=== PATIENT | male | born 1965 | race Caucasian/White ===

== ENCOUNTER 2017-04-15 17:22 | Inpatient (IN) | payer BC ==
[2017-04-15 17:23] VITALS: BMI 25.0
[2017-04-15] MEDS ORDERED: Sodium Chloride 0.9% 1,000 ML IV STA (17:54)
[2017-04-15 18:06] LABS: VENOUS BLOOD GAS BASE EXCESS 0.2 mmol/L (0.0-2.0); VENOUS BLOOD GAS PCO2 24 mmHg (40-60); VENOUS BLOOD PH 7.55 (7.32-7.43)
[2017-04-15 18:13] LABS: EOS % 0.1 % (0.0-4.0); HEMATOCRIT 46.9 % (35.0-51.0); LYMPH # 1.3 K/uL (1.0-4.3); LYMPH % 33.8 % (20.0-40.0); MEAN CELL VOLUME 95.1 fl (80.0-94.0); MEAN CORPUSCULAR HEMOGLOBIN 32.2 pg (27.0-31.0); MEAN CORPUSCULAR HGB CONC 33.8 g/dL (33.0-37.0); MEAN PLATELET VOLUME 9.5 fl (7.2-11.7); MONO % 26.8 % (0.0-10.0); NEUT # 1.5 K/uL (1.8-7.0); NEUT % 38.3 % (50.0-75.0); NRBC % 0.3 % (0.0-0.0); PLATELET COUNT 109 K/uL (130-400); RED CELL DISTRIBUTION WIDTH 12.6 % (11.5-14.5); WHITE BLOOD COUNT 3.9 K/uL (4.8-10.8)
[2017-04-15 18:20] LABS: ALB/GLOB RATIO 1.4 (1.0-2.1); ALKALINE PHOSPHATASE 68 U/L (38-126); ALT/SGPT 101 U/L (21-72); AST/SGOT 62 U/L (17-59); BILIRUBIN,TOTAL 0.6 mg/dl (0.2-1.3); BLOOD UREA NITROGEN 12 mg/dl (9-20); CHLORIDE 101 mmol/L (98-107); GFR AFRICAN-AMERICAN > 60; GLUCOSE,RANDOM 172 mg/dL (75-110); SODIUM 133 mmol/l (132-148)
[2017-04-15 18:34] LABS: POTASSIUM 4.2 MMOL/L (3.6-5.0)
[2017-04-15 18:36] LABS: PARTIAL THROMBOPLASTIN TIME 26.2 Seconds (25.6-37.1)
--- NOTE | 2017-04-15 18:49 | CT ---
PROCEDURE: CT HEAD WITHOUT CONTRAST. HISTORY: OAKLEY with neck pain COMPARISON: 03/01/2013 TECHNIQUE: Axial computed tomography images were obtained through the head/brain without intravenous contrast. Coronal and sagittal reconstructed images. Radiation dose: Total exam DLP = 840.68 mGy-cm. This CT exam was performed using one or more of the following dose reduction techniques: Automated exposure control, adjustment of the mA and/or kV according to patient size, and/or use of iterative reconstruction technique. FINDINGS: HEMORRHAGE: No intracranial hemorrhage. BRAIN: No mass effect or edema. Small lacune or infarcts left thalamus similar finding identified previously. VENTRICLES: Unremarkable. No hydrocephalus. CALVARIUM: Unremarkable. PARANASAL SINUSES: Unremarkable as visualized. No significant inflammatory changes. MASTOID AIR CELLS: Unremarkable as visualized. No inflammatory changes. OTHER FINDINGS: None. IMPRESSION: No acute intracranial abnormalities. No significant findings to account for the clinical presentation. No significant interval change compared to the prior examination(s).
[2017-04-15 18:57] LABS: CARBON DIOXIDE 17 mmol/L (22-30)
[2017-04-15 19:24] LABS: NEUTROPHIL 38 % (42-75); TOTAL CELLS COUNTED 100
[2017-04-15 19:25] LABS: GIANT PLATELETS PRESENT
--- NOTE | 2017-04-15 19:27 | ED PDOC ---
HPI: General Adult Time Seen by Provider: 04/15/17 17:46 Chief Complaint (Nursing): Flu-like Symptoms Chief Complaint (Provider): fever History Per: Patient History/Exam Limitations: no limitations Additional Complaint(s): 52yo M in ED for eval of neck pain, nausea with one episode of vomiting with fever chills, abd pain,body aches cough(mild) no sputum started today with photophobia. pt states that he was seen by pmd yesterday for lesion to inner thigh (right) and rx Keflex, which he flees has not done anything for him. Pt denies foreign travel or contact with sick persons. Past Medical History Reviewed: Historical Data, Nursing Documentation, Vital Signs Vital Signs: Last Vital Signs Temp 103.2 F H 04/15/17 17:37 Pulse 118 H 04/15/17 17:37 Resp 24 04/15/17 17:37 BP 137/88 04/15/17 17:37 Pulse Ox 99 04/15/17 17:37 - Medical History PMH: Diabetes, Emphysema, HTN Denies: Chronic Kidney Disease - Surgical History Surgical History: Appendectomy, Endoscopy - Family History Family History: States: No Known Family Hx - Home Medications Home Medications: Ambulatory Orders Medication Instructions Recorded Enalapril [Vasotec] 10 mg PO DAILY 11/02/13 Canagliflozin [Invokana] 100 mg PO QPM 02/08/15 Cyanocobalamin [Vitamin B12] 1 tab PO DAILY 03/24/16 Ibuprofen [Motrin Tab] 600 mg PO Q6H PRN 03/24/16 Sucralfate [Carafate Tab] 1 gm PO BID 03/24/16 Valacyclovir HCl [Valtrex] 1,000 mg PO DAILY 03/24/16 Vitamin A 1 cap PO DAILY 03/24/16 Vitamin E 1,000 unit PO DAILY 03/24/16 Tigecycline [Tygacil] 50 mg IV Q12 #0 vial 04/06/16 - Allergies Allergies/Adverse Reactions: Allergies Allergy/AdvReac Type Severity Reaction Status Date / Time cephalexin Allergy ITCHING Verified 03/24/16 13:37 Cephalosporins Allergy ITCHING Verified 03/24/16 13:37 Sulfa (Sulfonamide Allergy ITCHING Verified 03/24/16 13:37 Antibiotics) sulfamethoxazole Allergy ITCHING Verified 03/24/16 13:37 [From Bactrim] trimethoprim [From Bactrim] Allergy ITCHING Verified 03/24/16 13:37 Review of Systems ROS Statement: Except As Marked, All Systems Reviewed And Found Negative Constitutional: Positive for: Fever, Chills, Weakness, Malaise Respiratory: Positive for: Cough Gastrointestinal: Positive for: Nausea, Vomiting, Abdominal Pain Musculoskeletal: Positive for: Neck Pain Neurological: Positive for: Headache Physical Exam - Reviewed Nursing Documentation Reviewed: Yes Vital Signs Reviewed: Yes - Physical Exam Appears: Positive for: Non-toxic, Uncomfortable, In Acute Distress Head Exam: Positive for: ATRAUMATIC, NORMAL INSPECTION, NORMOCEPHALIC Skin: Positive for: Normal Color, Warm, DRY Eye Exam: Positive for: EOMI, Normal appearance, PERRL ENT: Positive for: Normal ENT Inspection Neck: Positive for: Normal. Negative for: Painless ROM (painful C-spine. (-) brudzinski sign ) Cardiovascular/Chest: Positive for: Regular Rate, Rhythm Respiratory: Positive for: CNT, Normal Breath Sounds Gastrointestinal/Abdominal: Positive for: Normal Exam, Bowel Sounds, Soft Back: Positive for: Normal Inspection Extremity: Positive for: Normal ROM Neurologic/Psych: Positive for: Alert, Oriented - Laboratory Results Result Diagrams: 04/15/17 18:04 04/15/17 18:04 - ECG O2 Sat by Pulse Oximetry: 99 - Radiology X-Ray: Interpreted by Il X-Ray Interpretation: No Acute Disease - CT Scan/US head Other Rad Studies (CT/US): Radiology Report Reviewed (NAD) - Progress ED Course And Treament: case discussed with MD radha for pt after torodol 30mg IV and morphine 2mg IV still with OAKLEY 9/10 and neck pain. Lumbar puncture would be beneficial to help r/ o meningitis however pt refused. Pt explained the benefits and the risks he assumes and still declines LP. PT meets SIRS/Sepsis criteria-tachycardia, low WBC, fever in ER. Re-evaluation Time: 19:31 Condition: Re-examined (still with perisistent OAKLEY) Medical Decision Making Medical Decision Making: Pt case discussed with MD Hiro -PMD suggest vancomycin /Rocephin and admission to for Sepsis Disposition - Clinical Impression Clinical Impression: Sepsis, Headache - Patient ED Disposition Is Patient to be Admitted: Yes - Disposition Disposition Time: 19:32 Condition: FAIR Forms: [facility] (Maltese) - Pt Status Changed To: Hospital Disposition Of: Inpatient - Admit Certification Admit to Inpatient:: After my assessment, the patient will require hospitalization for at least two midnights. This is because of the severity of symptoms shown, intensity of services needed, and/or the medical risk in this patient being treated as an outpatient. - POA Present On Arrival: None
[2017-04-15] MEDS ORDERED: Vancomycin 1 g Inj ONE (21:30)
[2017-04-15] MEDS ORDERED: Sodium Chloride 0.45% 1,000 ML IV SCH (23:00)
[2017-04-16 05:35] LABS: BASO % 0.9 % (0.0-2.0); HEMATOCRIT 42.8 % (35.0-51.0); LYMPH # 1.1 K/uL (1.0-4.3); LYMPH % 33.1 % (20.0-40.0); MEAN CELL VOLUME 95.5 fl (80.0-94.0); MEAN CORPUSCULAR HGB CONC 33.6 g/dL (33.0-37.0); MEAN PLATELET VOLUME 9.7 fl (7.2-11.7); MONO # 1.1 K/uL (0.0-0.8); MONO % 33.5 % (0.0-10.0); NEUT # 1.1 K/uL (1.8-7.0); NEUT % 32.5 % (50.0-75.0); NRBC % 0.7 % (0.0-0.0); PLATELET COUNT 90 K/uL (130-400); RED CELL DISTRIBUTION WIDTH 12.5 % (11.5-14.5); WHITE BLOOD COUNT 3.3 K/uL (4.8-10.8)
[2017-04-16 05:47] LABS: BLOOD UREA NITROGEN 12 mg/dl (9-20); CALCIUM 8.2 mg/dL (8.4-10.2); CARBON DIOXIDE 22 mmol/L (22-30); CHLORIDE 104 mmol/L (98-107); GFR AFRICAN-AMERICAN > 60; GLUCOSE,RANDOM 161 mg/dL (75-110); POTASSIUM 3.7 MMOL/L (3.6-5.0); SODIUM 137 mmol/l (132-148)
[2017-04-16 06:44] LABS: RBC URINE 1 /hpf (0-3); URINE BILIRUBIN NEGATIVE (NEGATIVE); URINE BLOOD NEGATIVE (NEGATIVE); URINE COLOR YELLOW (YELLOW); URINE GLUCOSE (UA) >=500 mg/dL (Normal); URINE KETONE 20 mg/dL (NEGATIVE); URINE LEUKOCYTE ESTERASE NEG Leu/uL (Negative); URINE PROTEIN 30 mg/dL (NEGATIVE); URINE UROBILINOGEN 0.2-1.0 mg/dL (0.2-1.0); WBC URINE < 1 /hpf (0-5)
[2017-04-16] MEDS: levoFLOXacin 500 mg in D5W 500 MG/100 ML BAG IVPB SCH (08:11)
[2017-04-16] MEDS: Pantoprazole 40 mg EC Tab PO SCH (08:19)
--- NOTE | 2017-04-16 08:38 | CARD ---
APPROVED REPORT EKG Measurement Heart [id number] [id number] <Conclusion> Sinus tachycardia Otherwise normal ECG
[2017-04-16 10:35] LABS: NEUTROPHIL 30 % (42-75); REACTIVE LYMPHOCYTES 4 % (0-0); TOTAL CELLS COUNTED 100
[2017-04-16 12:40] LABS: ERYTHROCYTE SEDIMENTATION RATE 16 mm/hr (0-20)
--- NOTE | 2017-04-16 12:55 | RAD ---
HISTORY: cough COMPARISON: No prior. FINDINGS: LUNGS: No active pulmonary disease. PLEURA: No significant pleural effusion identified, no pneumothorax apparent. CARDIOVASCULAR: Normal. OSSEOUS STRUCTURES: No significant abnormalities. VISUALIZED UPPER ABDOMEN: Normal. OTHER FINDINGS: None. IMPRESSION: No active disease.
[2017-04-16] MEDS: Aztreonam 1 GM in Sodium Chloride 0.9% 100 ML IVPB SCH ×2 (14:59→20:24)
[2017-04-16] MEDS: Apap-Butalbital-Caffeine 325-50-40mg Tab PO PRN (15:00)
--- NOTE | 2017-04-16 20:06 | HP ---
HISTORY OF PRESENT ILLNESS: The patient is a 52-year-old male who was admitted via the emergency room following an episode of neck pain, nausea, with one episode of vomiting, fever and chills, some body aches. On the day of admission he was sitting in the emergency room and indicated that he had a fever and was advised to have a lumbar puncture performed but he refused. He was seen in the office with right inner thigh lesion that appeared to be an insect bite. Twenty four hours prior to this presentation, he was placed on Keflex but indicates that the area of the bite remains the same and symptoms of nausea, vomiting and headache have occurred and therefore he was admitted for workup and therapy. 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. He also indicated he had a lumbar puncture done at [facility] about 6 months ago and as such had refused to have a lumbar puncture done again. FAMILY HISTORY: Remarkable for mother who had diabetes, hypertension and aunt who had Alzheimer's disease. SOCIAL HISTORY: He is an ex-smoker, does not use drugs, does not use alcohol. Has . REVIEW OF SYSTEMS: Essentially remarkable for occasional shortness of breath. PHYSICAL EXAMINATION: GENERAL: The patient is alert and oriented, still appears to be in some distress because of excessive diaphoresis. VITAL SIGNS: Temperature maximum was 103 degrees Fahrenheit prior to our admit to the hospital, but has been down to 99.3 degrees Fahrenheit since in hospital. Blood pressure 128/90, pulse of 114, respiratory rate 18 per minute. He is afebrile to 99 degrees Fahrenheit. O2 saturation 97% on nasal cannula. SKIN: Shows fair turgor. HEENT: Pupils are equal and reactive to light and accommodation. Mouth shows fair hygiene. JVP flat. There is a swelling of the parotid gland area bilaterally and submandibular glands. LUNGS: Clear. HEART: Regular. No murmur, rub or gallops. ABDOMEN: Soft, nontender. No organomegaly. EXTREMITIES: Shows no edema or cyanosis. CENTRAL NERVOUS SYSTEM: Grossly intact. RECTAL AND GENITAL: Deferred. LABORATORY DATA: Remarkable for WBC of 3.3, hemoglobin 14.4, platelet count of 90,000 down from 109,000, bands 6, neutrophils 32, lymphocytes 33, monocytes 33. Sedimentation rate is pending. PT 12.2, INR 1.2. VBG: PH 7.55, pCO2 of 24, pO2 of 47, bicarbonate 24.8, saturation 90.5, this is on room air. All cultures so far pending. Chest x-ray official report pending, but shows no acute cardiopulmonary pathology as reviewed by me. CAT scan of the head, no acute intracranial abnormalities noted. EKG sinus tachycardia. IMPRESSION: 1. Sepsis, questionable etiology. 2. Headaches probably secondary to sepsis. One has to rule out meningitis for the patient who is refusing lumbar puncture. 3. 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 4. Mild thrombocytopenia probably secondary to sepsis. 5. Diabetes mellitus. 6. Hypertension. PLAN: Intravenous antibiotics, intravenous fluids. Analgesics for pain. Infectious Disease evaluation. Case already discussed with Dr. Marshall who will see the patient on consult. The patient again advised to lumbar puncture but refused. We will maintain the patient in isolation while workup is being completed. We will obtain blood work for Lyme titers in view of the fact that the patient has what appears to be an insect bite on the right thigh even though this looks like a localized bite with no evidence of cellulitis. Further therapy will depend on findings. Chava Bosch MD
[2017-04-17] MEDS: Aztreonam 1 GM in Sodium Chloride 0.9% 100 ML IVPB SCH ×3 (03:27→20:17)
[2017-04-17 07:14] LABS: BASO % 0.5 % (0.0-2.0); HEMATOCRIT 42.3 % (35.0-51.0); LYMPH # 1.8 K/uL (1.0-4.3); LYMPH % 36.8 % (20.0-40.0); MEAN CELL VOLUME 94.1 fl (80.0-94.0); MEAN CORPUSCULAR HEMOGLOBIN 32.4 pg (27.0-31.0); MEAN CORPUSCULAR HGB CONC 34.4 g/dL (33.0-37.0); MEAN PLATELET VOLUME 9.7 fl (7.2-11.7); MONO # 1.5 K/uL (0.0-0.8); NEUT # 1.5 K/uL (1.8-7.0); NEUT % 31.7 % (50.0-75.0); NRBC % 0.3 % (0.0-0.0); PLATELET COUNT 76 K/uL (130-400); RED CELL DISTRIBUTION WIDTH 12.5 % (11.5-14.5); WHITE BLOOD COUNT 4.8 K/uL (4.8-10.8)
[2017-04-17 07:25] LABS: BLOOD UREA NITROGEN 8 mg/dl (9-20); CARBON DIOXIDE 22 mmol/L (22-30); CHLORIDE 99 mmol/L (98-107); GFR AFRICAN-AMERICAN > 60; GLUCOSE,RANDOM 177 mg/dL (75-110); POTASSIUM 3.5 MMOL/L (3.6-5.0); SODIUM 132 mmol/l (132-148)
[2017-04-17] MEDS: Pantoprazole 40 mg EC Tab PO SCH (09:31)
[2017-04-17] MEDS: Apap-Butalbital-Caffeine 325-50-40mg Tab PO PRN (09:31)
[2017-04-17] MEDS: levoFLOXacin 500 mg in D5W 500 MG/100 ML BAG IVPB SCH (11:00)
[2017-04-17] MEDS ORDERED: Iohexol 240 (50 ml) PO ONE (11:07)
--- NOTE | 2017-04-17 11:17 | CP.PCM.PN ---
Subjective - Date & Time of Evaluation Date of Evaluation: 04/17/17 Time of Evaluation: 11:18 - Subjective Subjective: FEELS BETTER TODAY STILL HAS LOW GRADE FEVER AND DIAPHORESES NO COUGH/CHEST PAINS R THIGH RASH UNCHANGED Objective - Vital Signs/Intake and Output Vital Signs (last 24 hours): Temp Pulse Resp BP Pulse Ox 99.5 F 93 H 20 130/85 98 04/17/17 07:31 04/17/17 07:31 04/17/17 07:31 04/17/17 07:31 04/17/17 07:31 - Medications Medications: Current Medications Acetaminophen (Tylenol 325mg Tab) 650 mg PO Q4 PRN PRN Reason: Pain, Mild (1-3) Last Admin: 04/16/17 10:44 Dose: 650 mg Acetaminophen (Tylenol 325mg Tab) 650 mg PO Q4 PRN PRN Reason: Fever >100 F Last Admin: 04/17/17 04:49 Dose: 650 mg Acetaminophen/Butalbital/Caffeine (Fioricet) 2 tab PO Q4 PRN PRN Reason: Headache Last Admin: 04/17/17 09:31 Dose: 2 tab Clotrimazole (Lotrimin 1% Cream) 1 applic TOP BID [facility] Last Admin: 04/17/17 10:00 Dose: 1 applic Enalapril Maleate (Vasotec) 10 mg PO DAILY [facility] Last Admin: 04/17/17 09:31 Dose: 10 mg Vancomycin HCl 1 gm/ Sodium (Chloride) 250 mls @ 166.667 mls/hr IVPB Q12 [facility] Last Admin: 04/17/17 09:30 Dose: 166.667 mls/hr Levofloxacin/Dextrose (Levaquin 500mg) 500 mg in 100 mls @ 100 mls/hr IVPB DAILY [facility] Last Admin: 04/17/17 11:00 Dose: 100 mls/hr Aztreonam 1 gm/ Sodium (Chloride) 100 mls @ 100 mls/hr IVPB Q8H [facility] Last Admin: 04/17/17 03:27 Dose: 100 mls/hr Iohexol (Omnipaque 240 (50 Ml)) 50 ml PO ONCE ONE Stop: 04/17/17 11:08 Morphine Sulfate (Morphine) 2 mg IVP Q4 PRN PRN Reason: Pain, severe (8-10) Last Admin: 04/17/17 09:30 Dose: 2 mg Pantoprazole Sodium (Protonix Ec Tab) 40 mg PO DAILY [facility] Last Admin: 04/17/17 09:31 Dose: 40 mg - Labs Labs: 04/17/17 06:00 04/17/17 07:00 PT 12.2 Seconds (9.8-13.1) 04/15/17 18:04 INR 1.2 (0.9-1.2) 04/15/17 18:04 APTT 26.2 Seconds (25.6-37.1) 04/15/17 18:04 - Constitutional Appears: No Acute Distress - Head Exam Head Exam: ATRAUMATIC, NORMAL INSPECTION, NORMOCEPHALIC - Eye Exam Eye Exam: EOMI, Normal appearance, PERRL Pupil Exam: NORMAL ACCOMODATION, PERRL - ENT Exam ENT Exam: Mucous Membranes Moist, Normal Exam - Neck Exam Neck Exam: Full ROM, Normal Inspection. absent: Lymphadenopathy - Respiratory Exam Respiratory Exam: Clear to Ausculation Bilateral, NORMAL BREATHING PATTERN - Cardiovascular Exam Cardiovascular Exam: REGULAR RHYTHM, +S1, +S2. absent: Murmur - GI/Abdominal Exam GI & Abdominal Exam: Soft, Normal Bowel Sounds. absent: Tenderness - Rectal Exam Rectal Exam: NORMAL INSPECTION - Extremities Exam Extremities Exam: Full ROM, Normal Capillary Refill, Normal Inspection. absent : Joint Swelling, Pedal Edema - Back Exam Back Exam: NORMAL INSPECTION - Neurological Exam Neurological Exam: Alert, Awake, CN II-XII Intact, Normal Gait, Oriented x3 - Psychiatric Exam Psychiatric exam: Normal Affect, Normal Mood - Skin Skin Exam: Dry, Intact, Normal Color, Warm Assessment and Plan - Assessment and Plan (Free Text) Assessment: SEPSIS-?ETIOLOGY THROMBOCYTOPENIA DUE TO INFECTION RASH OF R THIGH-?INSECT BITE DM WITH HYPERGLYCEMIA COPD-STABLE HEADACHES Plan: CONTINUE ANTIBIOTIC RX PT STILL REFUSES LP WILL OBTAIN CT SCAN OF CHEST AND ABD TO R/O ABSCESS
[2017-04-17 11:24] LABS: METAMYELOCYTE 1 % (0-0); NEUTROPHIL 28 % (42-75); REACTIVE LYMPHOCYTES 2 % (0-0); TOTAL CELLS COUNTED 100
--- NOTE | 2017-04-17 13:20 | CP.PCM.CON ---
History of Present Illness - History of Present Illness History of Present Illness: 52 yo male with hx of DM is admitted after failure of PO antibiotics presented with hx of several days fever, body aches, muscle aches and rash to right inner thigh in er found to have SIRS and was cultured up, started on antibiotics Found to have thrombocytopenia ID consulted for this PMH- + DM HTN ESBL E Coli infection in the past from abscess drained in 2016 allergy- cephalosporins, sulfa FH- DM SH- perirectal abscess drained in past Review of Systems - Constitutional Constitutional: As Per HPI, Anorexia, Fatigue, Fever, Headache, Lethargy, Malaise - EENT Eyes: absent: As Per HPI, Blind Spots, Blurred Vision, Change in Vision, Decreased Night Vision, Diplopia, Discharge, Dry Eye, Exophthalmos, Floaters, Irritation, Itchy Eyes, Loss of Peripheral Vision, Pain, Photophobia, Requires Corrective Lenses, Sees Flashes, Spots in Vision, Tunnel Vision, Other Visual Disturbances, Loss of Vision, Other Ears: absent: As Per HPI, Decreased Hearing, Ear Discharge, Ear Pain, Tinnitus, Abnormal Hearing, Disequilibrium, Dizziness, Other Nose/Mouth/Throat: absent: As Per HPI, Epistaxis, Nasal Congestion, Nasal Discharge, Nasal Obstruction, Nasal Trauma, Nose Pain, Post Nasal Drip, Sinus Pain, Sinus Pressure, Bleeding Gums, Change in Voice, Dental Pain, Dry Mouth, Dysphagia, Halitosis, Hoarsness, Lip Swelling, Mouth Lesions, Mouth Pain, Odynophagia, Sore Throat, Throat Swelling, Tongue Swelling, Facial Pain, Neck Pain, Neck Mass, Other - Cardiovascular Cardiovascular: absent: As Per HPI, Acrocyanosis, Chest Pain, Chest Pain at Rest , Chest Pain with Activity, Claudication, Diaphoresis, Dyspnea, Dyspnea on Exertion, Edema, Irregular Heart Rhythm, Pain Radiating to Arm/Neck/Jaw, Leg Edema, Leg Ulcers, Lightheadedness, Orthopnea, Palpitations, Paroxysmal Nocturnal Dyspnea, Pedal Edema, Radiating Pain, Rapid Heart Rate, Slow Heart Rate, Syncope, Other - Respiratory Respiratory: absent: As Per HPI, Cough, Dyspnea, Hemoptysis, Dyspnea on Exertion , Wheezing, Snoring, Stridor, Pain on Inspiration, Chest Congestion, Excessive Mucous Production, Change in Mucous Color, Pain with Coughing, Other - Gastrointestinal Gastrointestinal: absent: As Per HPI, Abdominal Pain, Belching, Bloating, Change in Bowel Habits, Change in Stool Character, Coffee Ground Emesis, Constipation, Cramping, Diarrhea, Dyspepsia, Dysphagia, Early Satiety, Excessive Flatus, Fecal Incontinence, Heartburn, Hematemesis, Hematochezia, Loose Stools, Melena, Nausea, Odynophagia, Temesmus, Vomiting, Other - Genitourinary Genitourinary: absent: As Per HPI, Change in Urinary Stream, Difficulty Urinating, Dysuria, Flank Pain, Hematuria, Pyuria, Nocturia, Urinary Incontinence, Urinary Frequency, Urinary Hesitance, Urinary Urgency, Voiding Freq/Small Amts, Freq UTI, Hx Renal/Bladder Calculi, Hx /Renal Surgery, Bladder Distension, Other - Musculoskeletal Musculoskeletal: As Per HPI, Muscle Cramps, Myalgias, Neck Pain - Integumentary Integumentary: As Per HPI, Skin Pain, Wounds - Neurological Neurological: As Per HPI - Psychiatric Psychiatric: absent: As Per HPI, Abnormal Sleep Pattern, Anhedonia, Anxiety, Auditory Hallucinations, Behavioral Changes, Change in Appetite, Change in Libido, Confusion, Depression, Difficulty Concentrating, Hallucinations, Homicidal Ideation, Hopelessness, Irritability, Memory Loss, Mood Swings, Panic Attacks, Paranoia, Suicidal Ideation, Visual Hallucinations, Tactile Hallucinations, Other - Endocrine Endocrine: absent: As Per HPI, Change in Body Appearance, Change in Libido, Cold Intolorance, Deepening of Voice, Excessive Sweating, Fatigue, Flushing, Heat Intolorance, Increase in Ring/Shoe/Hat Size, Palpitations, Polydipsia, Polyphagia, Polyuria, Other - Hematologic/Lymphatic Hematologic: absent: As Per HPI, Easy Bleeding, Easy Bruising, Lymphadenopathy, Other Past Patient History - Past Medical History & Family History Past Medical History?: Yes - Past Social History Smoking Status: Former Smoker - CARDIAC Hx Cardiac Disorders: Yes (HTN) - PULMONARY Hx Respiratory Disorders: Yes Hx Chronic Obstructive Pulmonary Disease (COPD): Yes Hx Emphysema: Yes - NEUROLOGICAL Hx Neurological Disorder: No - HEENT Hx HEENT Problems: No - RENAL Hx Chronic Kidney Disease: No - ENDOCRINE/METABOLIC Hx Endocrine Disorders: Yes (DM II) - HEMATOLOGICAL/ONCOLOGICAL Hx Blood Disorders: No - INTEGUMENTARY Hx Dermatological Problems: No - MUSCULOSKELETAL/RHEUMATOLOGICAL Hx Musculoskeletal Disorders: No Hx Falls: No - GASTROINTESTINAL Hx Gastrointestinal Disorders: Yes Hx Gastroesophageal Reflux: Yes Hx Hemorrhoids: Yes - GENITOURINARY/GYNECOLOGICAL Hx Genitourinary Disorders: No - PSYCHIATRIC Hx Psychophysiologic Disorder: No Hx Substance Use: No - SURGICAL HISTORY Hx Appendectomy: Yes - ANESTHESIA Hx Anesthesia: Yes Hx Anesthesia Reactions: No Hx Malignant Hyperthermia: No Meds Allergies/Adverse Reactions: Allergies Allergy/AdvReac Type Severity Reaction Status Date / Time cephalexin Allergy ITCHING Verified 03/24/16 13:37 Cephalosporins Allergy ITCHING Verified 03/24/16 13:37 Sulfa (Sulfonamide Allergy ITCHING Verified 03/24/16 13:37 Antibiotics) sulfamethoxazole Allergy ITCHING Verified 03/24/16 13:37 [From Bactrim] trimethoprim [From Bactrim] Allergy ITCHING Verified 03/24/16 13:37 - Medications Medications: Current Medications Acetaminophen (Tylenol 325mg Tab) 650 mg PO Q4 PRN PRN Reason: Pain, Mild (1-3) Last Admin: 04/16/17 10:44 Dose: 650 mg Acetaminophen (Tylenol 325mg Tab) 650 mg PO Q4 PRN PRN Reason: Fever >100 F Last Admin: 04/17/17 04:49 Dose: 650 mg Acetaminophen/Butalbital/Caffeine (Fioricet) 2 tab PO Q4 PRN PRN Reason: Headache Last Admin: 04/17/17 09:31 Dose: 2 tab Clotrimazole (Lotrimin 1% Cream) 1 applic TOP BID [facility] Last Admin: 04/17/17 10:00 Dose: 1 applic Enalapril Maleate (Vasotec) 10 mg PO DAILY [facility] Last Admin: 04/17/17 09:31 Dose: 10 mg Vancomycin HCl 1 gm/ Sodium (Chloride) 250 mls @ 166.667 mls/hr IVPB Q12 [facility] Last Admin: 04/17/17 09:30 Dose: 166.667 mls/hr Levofloxacin/Dextrose (Levaquin 500mg) 500 mg in 100 mls @ 100 mls/hr IVPB DAILY [facility] Last Admin: 04/17/17 11:00 Dose: 100 mls/hr Aztreonam 1 gm/ Sodium (Chloride) 100 mls @ 100 mls/hr IVPB Q8H [facility] Last Admin: 04/17/17 12:57 Dose: 100 mls/hr Morphine Sulfate (Morphine) 2 mg IVP Q4 PRN PRN Reason: Pain, severe (8-10) Last Admin: 04/17/17 09:30 Dose: 2 mg Pantoprazole Sodium (Protonix Ec Tab) 40 mg PO DAILY [facility] Last Admin: 04/17/17 09:31 Dose: 40 mg Physical Exam - Constitutional Appears: Toxic, No Acute Distress - Head Exam Head Exam: NORMOCEPHALIC - Eye Exam Eye Exam: EOMI, PERRL. absent: Scleral icterus - ENT Exam ENT Exam: Mucous Membranes Dry, Normal External Ear Exam, Normal Oropharynx - Neck Exam Neck exam: Negative for: Lymphadenopathy, Thyromegaly - Respiratory Exam Respiratory Exam: Decreased Breath Sounds, Clear to Auscultation Bilateral - Cardiovascular Exam Cardiovascular Exam: REGULAR RHYTHM, +S1, +S2 - GI/Abdominal Exam GI & Abdominal Exam: Diminished Bowel Sounds, Soft. absent: Guarding, Rebound - Rectal Exam Rectal Exam: Deferred - Exam Exam: NORMAL INSPECTION - Extremities Exam Extremities exam: Positive for: pedal pulses present. Negative for: calf tenderness, pedal edema, tenderness - Back Exam Back exam: absent: CVA tenderness (L), CVA tenderness (R) - Neurological Exam Neurological exam: Alert, CN II-XII Intact, Oriented x3, Reflexes Normal - Psychiatric Exam Psychiatric exam: Normal Mood - Skin Skin Exam: Dry Results - Vital Signs Recent Vital Signs: Last Vital Signs Temp 99.5 F 04/17/17 07:31 Pulse 93 H 04/17/17 07:31 Resp 20 04/17/17 07:31 BP 130/85 04/17/17 07:31 Pulse Ox 98 04/17/17 07:31 - Labs Result Diagrams: 04/17/17 06:00 04/17/17 07:00 Labs: Laboratory Results - last 24 hr 04/16/17 04/17/17 04/17/17 21:33 05:17 06:00 WBC 4.8 RBC 4.49 Hgb 14.5 Hct 42.3 MCV 94.1 H MCH 32.4 H MCHC 34.4 RDW 12.5 Plt Count 76 L MPV 9.7 Neut % (Auto) 31.7 L Lymph % (Auto) 36.8 [place] % (Auto) 31.0 H Eos % (Auto) 0.0 Baso % (Auto) 0.5 Neut # 1.5 L Lymph # 1.8 [place] # 1.5 H Eos # 0.0 Baso # 0.0 Neutrophils % (Manual) 28 L Band Neutrophils % 3 H Lymphocytes % (Manual) 35 Reactive Lymphs % 2 H Monocytes % (Manual) 31 H Metamyelocytes % 1 H Platelet Estimate Decreased L RBC Morphology Normal Sodium Potassium Chloride Carbon Dioxide Anion Gap BUN Creatinine Est GFR ( Amer) Est GFR (Non-Af Amer) POC Glucose (mg/dL) 232 H 152 H Random Glucose Calcium 04/17/17 04/17/17 07:00 11:01 WBC RBC Hgb Hct MCV MCH MCHC RDW Plt Count MPV Neut % (Auto) Lymph % (Auto) [place] % (Auto) Eos % (Auto) Baso % (Auto) Neut # Lymph # [place] # Eos # Baso # Neutrophils % (Manual) Band Neutrophils % Lymphocytes % (Manual) Reactive Lymphs % Monocytes % (Manual) Metamyelocytes % Platelet Estimate RBC Morphology Sodium 132 Potassium 3.5 L Chloride 99 Carbon Dioxide 22 Anion Gap 15 BUN 8 L Creatinine 0.8 Est GFR ( Amer) > 60 Est GFR (Non-Af Amer) > 60 POC Glucose (mg/dL) 220 H Random Glucose 177 H Calcium 8.0 L Assessment & Plan (1) Headache Status: Acute (2) Sepsis Status: Acute (3) COPD (chronic obstructive pulmonary disease) Status: Acute - Assessment and Plan (Free Text) Assessment: severe sepsis source unclear serologies and cultures sent etiology of thrombocytop[enia unclear - will send for DIC work up, may need Heme eval additional serologies sent for rickettsia, babesia pending Lyme serology
--- NOTE | 2017-04-17 23:13 | CT ---
EXAM: CT Chest Without Intravenous Contrast CLINICAL HISTORY: 52 years old, male; Signs and symptoms; Shortness of breath and other: Sepsis; Prior surgery; Surgery date: 6+ months; Surgery type: Sepsis abd pain n v d dm HTN emphysema. Hemorrhoids SX appendectomy TECHNIQUE: Axial computed tomography images of the chest without intravenous contrast. All CT scans at this facility use one or more dose reduction techniques, viz.: automated exposure control; ma/kV adjustment per patient size (including targeted exams where dose is matched to indication; i.e. head); or iterative reconstruction technique. Coronal and sagittal reformatted images were created and reviewed. COMPARISON: CT CHEST W/CONT 04/11/2012 10:37:54 AM FINDINGS: Lungs: Minimal atelectasis. No consolidation. Mild interlobular septal thickening and several small groundglass nodular opacities RIGHT upper, RIGHT middle, RIGHT lower lobes. Minimal paraseptal emphysematous changes. Pleural space: Trace RIGHT pleural effusion. No pneumothorax. Heart: No cardiomegaly. Small focal pericardial effusion. Bones/joints: No acute fracture. Soft tissues: Unremarkable. Vasculature: Minimal atherosclerotic disease. No aneurysm. Lymph nodes: Few mildly enlarged short axis axillary lymph nodes. Few borderline enlarged short axis mediastinal lymph nodes. Kidneys and ureters: Minimal stranding about kidneys, nonspecific. IMPRESSION: 1. Interlobular septal thickening/groundglass nodular opacities, indeterminate. Consider inflammatory, infectious, vascular, neoplastic etiologies. 2. Axillary mediastinal lymphadenopathy. 3. Incidental/non-acute findings are described above.
[2017-04-18] MEDS: Aztreonam 1 GM in Sodium Chloride 0.9% 100 ML IVPB SCH ×3 (03:57→20:15)
[2017-04-18 06:53] LABS: BASO % 0.3 % (0.0-2.0); EOS % 0.1 % (0.0-4.0); HEMATOCRIT 43.1 % (35.0-51.0); LYMPH # 2.7 K/uL (1.0-4.3); LYMPH % 28.5 % (20.0-40.0); MEAN CELL VOLUME 94.8 fl (80.0-94.0); MEAN CORPUSCULAR HEMOGLOBIN 32.3 pg (27.0-31.0); MEAN PLATELET VOLUME 10.5 fl (7.2-11.7); MONO # 4.3 K/uL (0.0-0.8); MONO % 45.1 % (0.0-10.0); NEUT # 2.5 K/uL (1.8-7.0); NRBC % 0.3 % (0.0-0.0); PLATELET COUNT 80 K/uL (130-400); RED CELL DISTRIBUTION WIDTH 12.8 % (11.5-14.5); WHITE BLOOD COUNT 9.6 K/uL (4.8-10.8)
[2017-04-18 06:57] LABS: ALB/GLOB RATIO 1.2 (1.0-2.1); ALKALINE PHOSPHATASE 71 U/L (38-126); ALT/SGPT 103 U/L (21-72); AST/SGOT 70 U/L (17-59); BILIRUBIN,TOTAL 0.4 mg/dl (0.2-1.3); BLOOD UREA NITROGEN 9 mg/dl (9-20); CALCIUM 8.2 mg/dL (8.4-10.2); CARBON DIOXIDE 24 mmol/L (22-30); CHLORIDE 98 mmol/L (98-107); GFR AFRICAN-AMERICAN > 60; GLUCOSE,RANDOM 199 mg/dL (75-110); POTASSIUM 3.9 MMOL/L (3.6-5.0); SODIUM 135 mmol/l (132-148); TOTAL PROTEIN 7.1 G/DL (6.3-8.2)
[2017-04-18] MEDS: Pantoprazole 40 mg EC Tab PO SCH (08:13)
[2017-04-18] MEDS: levoFLOXacin 500 mg in D5W 500 MG/100 ML BAG IVPB SCH (08:15)
--- NOTE | 2017-04-18 10:02 | CP.PCM.PN ---
Subjective - Date & Time of Evaluation Date of Evaluation: 04/18/17 Time of Evaluation: 10:01 - Subjective Subjective: STILL HAS INTERMITTENT FEVER FEELS BETTER TODAY Objective - Vital Signs/Intake and Output Vital Signs (last 24 hours): Temp Pulse Resp BP Pulse Ox 99 F 97 H 20 118/80 98 04/18/17 08:09 04/18/17 08:09 04/18/17 08:09 04/18/17 08:09 04/18/17 08:09 - Medications Medications: Current Medications Acetaminophen (Tylenol 325mg Tab) 650 mg PO Q4 PRN PRN Reason: Pain, Mild (1-3) Last Admin: 04/16/17 10:44 Dose: 650 mg Acetaminophen (Tylenol 325mg Tab) 650 mg PO Q4 PRN PRN Reason: Fever >100 F Last Admin: 04/18/17 00:03 Dose: 650 mg Acetaminophen/Butalbital/Caffeine (Fioricet) 2 tab PO Q4 PRN PRN Reason: Headache Last Admin: 04/17/17 09:31 Dose: 2 tab Clotrimazole (Lotrimin 1% Cream) 1 applic TOP BID [facility] Last Admin: 04/18/17 08:13 Dose: 1 applic Doxycycline Hyclate (Doryx) 100 mg PO Q12 [facility] Last Admin: 04/18/17 08:14 Dose: 100 mg Enalapril Maleate (Vasotec) 10 mg PO DAILY [facility] Last Admin: 04/18/17 08:14 Dose: 10 mg Vancomycin HCl 1 gm/ Sodium (Chloride) 250 mls @ 166.667 mls/hr IVPB Q12 [facility] Last Admin: 04/18/17 08:15 Dose: 166.667 mls/hr Levofloxacin/Dextrose (Levaquin 500mg) 500 mg in 100 mls @ 100 mls/hr IVPB DAILY [facility] Last Admin: 04/18/17 08:15 Dose: 100 mls/hr Aztreonam 1 gm/ Sodium (Chloride) 100 mls @ 100 mls/hr IVPB Q8H [facility] Last Admin: 04/18/17 03:57 Dose: 100 mls/hr Morphine Sulfate (Morphine) 2 mg IVP Q4 PRN PRN Reason: Pain, severe (8-10) Last Admin: 04/18/17 08:11 Dose: 2 mg Pantoprazole Sodium (Protonix Ec Tab) 40 mg PO DAILY [facility] Last Admin: 04/18/17 08:13 Dose: 40 mg - Labs Labs: 04/18/17 06:15 04/18/17 06:15 PT 12.2 Seconds (9.8-13.1) 04/15/17 18:04 INR 1.2 (0.9-1.2) 04/15/17 18:04 APTT 26.2 Seconds (25.6-37.1) 04/15/17 18:04 - Constitutional Appears: No Acute Distress - Head Exam Head Exam: ATRAUMATIC, NORMAL INSPECTION, NORMOCEPHALIC - Eye Exam Eye Exam: EOMI, Normal appearance, PERRL Pupil Exam: NORMAL ACCOMODATION, PERRL - ENT Exam ENT Exam: Mucous Membranes Moist, Normal Exam - Neck Exam Neck Exam: Full ROM, Normal Inspection. absent: Lymphadenopathy - Respiratory Exam Respiratory Exam: Clear to Ausculation Bilateral, NORMAL BREATHING PATTERN - Cardiovascular Exam Cardiovascular Exam: REGULAR RHYTHM, +S1, +S2. absent: Murmur - GI/Abdominal Exam GI & Abdominal Exam: Soft, Normal Bowel Sounds. absent: Tenderness - Rectal Exam Rectal Exam: NORMAL INSPECTION - Extremities Exam Extremities Exam: Full ROM, Normal Capillary Refill, Normal Inspection. absent : Joint Swelling, Pedal Edema - Back Exam Back Exam: NORMAL INSPECTION - Neurological Exam Neurological Exam: Alert, Awake, CN II-XII Intact, Normal Gait, Oriented x3 - Psychiatric Exam Psychiatric exam: Normal Affect, Normal Mood - Skin Skin Exam: Dry, Intact, Normal Color, Warm Assessment and Plan - Assessment and Plan (Free Text) Assessment: SEPSIS?ETIOLOGY Plan: CONTINUE ANTIBIOTIC RX
--- NOTE | 2017-04-18 10:39 | CP.PCM.PN ---
Subjective - Date & Time of Evaluation Date of Evaluation: 04/18/17 Time of Evaluation: 08:00 - Subjective Subjective: still spiking to 102 Babesia, Lyme and rickettsia pending refused LP IV Vanco/azactam/levofloxacin + PO doxy to continue await CT Abd/ Pelvis Objective - Vital Signs/Intake and Output Vital Signs (last 24 hours): Temp Pulse Resp BP Pulse Ox 99 F 97 H 20 118/80 98 04/18/17 08:09 04/18/17 08:09 04/18/17 08:09 04/18/17 08:09 04/18/17 08:09 - Medications Medications: Current Medications Acetaminophen (Tylenol 325mg Tab) 650 mg PO Q4 PRN PRN Reason: Pain, Mild (1-3) Last Admin: 04/16/17 10:44 Dose: 650 mg Acetaminophen (Tylenol 325mg Tab) 650 mg PO Q4 PRN PRN Reason: Fever >100 F Last Admin: 04/18/17 00:03 Dose: 650 mg Acetaminophen/Butalbital/Caffeine (Fioricet) 2 tab PO Q4 PRN PRN Reason: Headache Last Admin: 04/17/17 09:31 Dose: 2 tab Clotrimazole (Lotrimin 1% Cream) 1 applic TOP BID [facility] Last Admin: 04/18/17 08:13 Dose: 1 applic Doxycycline Hyclate (Doryx) 100 mg PO Q12 [facility] Last Admin: 04/18/17 08:14 Dose: 100 mg Enalapril Maleate (Vasotec) 10 mg PO DAILY [facility] Last Admin: 04/18/17 08:14 Dose: 10 mg Vancomycin HCl 1 gm/ Sodium (Chloride) 250 mls @ 166.667 mls/hr IVPB Q12 [facility] Last Admin: 04/18/17 08:15 Dose: 166.667 mls/hr Levofloxacin/Dextrose (Levaquin 500mg) 500 mg in 100 mls @ 100 mls/hr IVPB DAILY [facility] Last Admin: 04/18/17 08:15 Dose: 100 mls/hr Aztreonam 1 gm/ Sodium (Chloride) 100 mls @ 100 mls/hr IVPB Q8H [facility] Last Admin: 04/18/17 03:57 Dose: 100 mls/hr Morphine Sulfate (Morphine) 2 mg IVP Q4 PRN PRN Reason: Pain, severe (8-10) Last Admin: 04/18/17 08:11 Dose: 2 mg Pantoprazole Sodium (Protonix Ec Tab) 40 mg PO DAILY [facility] Last Admin: 04/18/17 08:13 Dose: 40 mg - Labs Labs: 04/18/17 06:15 04/18/17 06:15 PT 12.2 Seconds (9.8-13.1) 04/15/17 18:04 INR 1.2 (0.9-1.2) 04/15/17 18:04 APTT 26.2 Seconds (25.6-37.1) 04/15/17 18:04 - Constitutional Appears: Toxic, No Acute Distress - Head Exam Head Exam: NORMOCEPHALIC - Eye Exam Eye Exam: EOMI, PERRL. absent: Scleral icterus - ENT Exam ENT Exam: Mucous Membranes Dry, Normal Oropharynx - Neck Exam Neck Exam: absent: Lymphadenopathy, Thyromegaly - Respiratory Exam Respiratory Exam: Decreased Breath Sounds, Clear to Ausculation Bilateral - Cardiovascular Exam Cardiovascular Exam: REGULAR RHYTHM, +S1, +S2 - GI/Abdominal Exam GI & Abdominal Exam: Distended, Soft. absent: Tenderness - Rectal Exam Rectal Exam: Deferred - Exam Exam: NORMAL INSPECTION - Extremities Exam Extremities Exam: absent: Calf Tenderness, Pedal Edema, Tenderness - Back Exam Back Exam: absent: CVA tenderness (L), CVA tenderness (R), paraspinal tenderness - Neurological Exam Neurological Exam: Alert, Awake, Normal Gait, Oriented x3 - Psychiatric Exam Psychiatric exam: Normal Mood - Skin Skin Exam: Dry Assessment and Plan (1) Headache Status: Acute (2) Sepsis Status: Acute (3) COPD (chronic obstructive pulmonary disease) Status: Acute - Assessment and Plan (Free Text) Assessment: CT chest- nodular opacities, lymphadenopathy + await CT Abd r/o infection vs neoplasia vs autoimmune ? sarcoid await cultures, serologies check PPD, CHANTAL levels
--- NOTE | 2017-04-18 10:53 | CT ---
PROCEDURE: CT Abdomen and Pelvis without intravenous contrast HISTORY: SEPSIS COMPARISON: Comparison is made to the previous study dated 03/24/2016 TECHNIQUE: Axial and reformatted coronal and sagittal CT images of the abdomen and pelvis were obtained after oral contrast administration. No IV contrast was given.. Contrast Dose: 0 Radiation dose: Total exam DLP = 842.6 mGy-cm. This CT exam was performed using one or more of the following dose reduction techniques: Automated exposure control, adjustment of the mA and/or kV according to patient size, and/or use of iterative reconstruction technique. FINDINGS: LOWER THORAX: Patchy ground-glass opacities at the right lower lung may represent atelectasis versus aspiration versus pneumonia. There is a trace right pleural effusion. LIVER: Hepatomegaly with findings suggestive of [id number] hepatic steatosis again noted. No evidence of mass lesion in the liver in this noncontrast study. GALLBLADDER AND BILE DUCTS: The gallbladder is distended demonstrate mild diffuse wall thickening. No evidence of pericholecystic fluid or inflammatory changes to suggest acute cholecystitis. PANCREAS: Unremarkable. No gross lesion or ductal dilatation. SPLEEN: Unremarkable. ADRENALS: Unremarkable. No mass. KIDNEYS AND URETERS: Unremarkable. No hydronephrosis. No solid mass. VASCULATURE: Unremarkable. No aortic aneurysm. BOWEL: Mildly distended small bowel loops demonstrate mild wall thickening. The possibility of enteritis cannot be excluded. No evidence of small bowel obstruction. No evidence of colitis. Few colonic diverticulosis without evidence of diverticulitis. APPENDIX: Unremarkable. Normal appendix. PERITONEUM: Unremarkable. No free fluid. No free air. LYMPH NODES: Unremarkable. No enlarged lymph nodes. BLADDER: Lxrs-sr-lfpnirri urinary bladder wall thickening is noted. REPRODUCTIVE: Unremarkable. BONES: No acute fracture. OTHER FINDINGS: Small fat containing inguinal hernias are seen. IMPRESSION: Distended gallbladder demonstrates mild wall thickening. No definite evidence of significant pericholecystic fluid or inflammatory changes. However if clinically warranted further assessment by ultrasound or hepatobiliary scan may be obtained. Heterogeneous ground-glass opacities at the right lower lung may represent atelectasis versus aspiration or pneumonia. Trace right pleural effusion. Yeqf-bd-xmdstvac circumferential urinary bladder wall thickening may represent cystitis. Mildly dilated small bowel loops without evidence of bowel obstruction. Preliminary report was submitted by virtual Radiology.
[2017-04-18 12:21] LABS: NEUTROPHIL 29 % (42-75); REACTIVE LYMPHOCYTES 12 % (0-0); TOTAL CELLS COUNTED 100
[2017-04-18 12:57] LABS: EPSTEIN-BARR VCA AB IGG >750.00 U/mL; EPSTEIN-BARR VCA AB IGM <36.00 U/mL
[2017-04-18] MEDS: Apap-Butalbital-Caffeine 325-50-40mg Tab PO PRN (23:13)
[2017-04-19] MEDS: Aztreonam 1 GM in Sodium Chloride 0.9% 100 ML IVPB SCH (03:26)
--- NOTE | 2017-04-19 08:46 | CP.PCM.PN ---
Subjective - Date & Time of Evaluation Date of Evaluation: 04/19/17 Time of Evaluation: 08:47 - Subjective Subjective: FEELS BETTER AFEBRILE NO CHEST PAINS/SOB HAS MORE ERYTHEMATOUS SKIN RASH ON ARMS AND BACK Objective - Vital Signs/Intake and Output Vital Signs (last 24 hours): Temp Pulse Resp BP Pulse Ox 97.9 F 77 20 124/81 99 04/19/17 08:42 04/19/17 08:42 04/19/17 08:42 04/19/17 08:42 04/19/17 08:42 - Medications Medications: Current Medications Acetaminophen (Tylenol 325mg Tab) 650 mg PO Q4 PRN PRN Reason: Pain, Mild (1-3) Last Admin: 04/16/17 10:44 Dose: 650 mg Acetaminophen (Tylenol 325mg Tab) 650 mg PO Q4 PRN PRN Reason: Fever >100 F Last Admin: 04/18/17 00:03 Dose: 650 mg Acetaminophen/Butalbital/Caffeine (Fioricet) 2 tab PO Q4 PRN PRN Reason: Headache Last Admin: 04/18/17 23:13 Dose: 2 tab Clotrimazole (Lotrimin 1% Cream) 1 applic TOP BID [facility] Last Admin: 04/18/17 16:27 Dose: 1 applic Doxycycline Hyclate (Doryx) 100 mg PO Q12 [facility] Last Admin: 04/18/17 20:16 Dose: 100 mg Enalapril Maleate (Vasotec) 10 mg PO DAILY [facility] Last Admin: 04/18/17 08:14 Dose: 10 mg Vancomycin HCl 1 gm/ Sodium (Chloride) 250 mls @ 166.667 mls/hr IVPB Q12 [facility] Last Admin: 04/18/17 21:32 Dose: 166.667 mls/hr Levofloxacin/Dextrose (Levaquin 500mg) 500 mg in 100 mls @ 100 mls/hr IVPB DAILY [facility] Last Admin: 04/18/17 08:15 Dose: 100 mls/hr Aztreonam 1 gm/ Sodium (Chloride) 100 mls @ 100 mls/hr IVPB Q8H [facility] Last Admin: 04/19/17 03:26 Dose: 100 mls/hr Morphine Sulfate (Morphine) 2 mg IVP Q4 PRN PRN Reason: Pain, severe (8-10) Last Admin: 04/19/17 03:33 Dose: 2 mg Pantoprazole Sodium (Protonix Ec Tab) 40 mg PO DAILY [facility] Last Admin: 04/18/17 08:13 Dose: 40 mg - Labs Labs: 04/18/17 06:15 04/18/17 06:15 PT 12.2 Seconds (9.8-13.1) 04/15/17 18:04 INR 1.2 (0.9-1.2) 04/15/17 18:04 APTT 26.2 Seconds (25.6-37.1) 04/15/17 18:04 - Constitutional Appears: No Acute Distress - Head Exam Head Exam: ATRAUMATIC, NORMAL INSPECTION, NORMOCEPHALIC - Eye Exam Eye Exam: EOMI, Normal appearance, PERRL Pupil Exam: NORMAL ACCOMODATION, PERRL - ENT Exam ENT Exam: Mucous Membranes Moist, Normal Exam - Neck Exam Neck Exam: Full ROM, Normal Inspection. absent: Lymphadenopathy - Respiratory Exam Respiratory Exam: Clear to Ausculation Bilateral, NORMAL BREATHING PATTERN - Cardiovascular Exam Cardiovascular Exam: REGULAR RHYTHM, +S1, +S2. absent: Murmur - GI/Abdominal Exam GI & Abdominal Exam: Soft, Normal Bowel Sounds. absent: Tenderness - Rectal Exam Rectal Exam: NORMAL INSPECTION - Extremities Exam Extremities Exam: Full ROM, Normal Capillary Refill, Normal Inspection. absent : Joint Swelling, Pedal Edema - Back Exam Back Exam: NORMAL INSPECTION - Neurological Exam Neurological Exam: Alert, Awake, CN II-XII Intact, Normal Gait, Oriented x3 - Psychiatric Exam Psychiatric exam: Normal Affect, Normal Mood - Skin Skin Exam: Dry, Intact, Normal Color, Rash, Warm Assessment and Plan - Assessment and Plan (Free Text) Assessment: SEPSIS IMPROVING COPD-STABLE DM WITH HYPERGLYCEMIA HEADACHES LESS Plan: D/C ISOLATION SINCE ALL CULTURES ARE NEGATIVE INCREASE ACTIVITY PLAN DISCHARGE ON PO ANTIBIOTICS IN AM IF AFEBRILE AND CLINICALLY STABLE
[2017-04-19] MEDS: Pantoprazole 40 mg EC Tab PO SCH (09:04)
[2017-04-19 09:17] LABS: LYME DISEASE SCREEN <0.90 index
--- NOTE | 2017-04-19 10:46 | CP.PCM.PN ---
Subjective - Date & Time of Evaluation Date of Evaluation: 04/19/17 Time of Evaluation: 08:00 - Subjective Subjective: fever less rash worse plts low all bacterial cultures neg thus far will d/c vanco/ azactam reculture for fever Objective - Vital Signs/Intake and Output Vital Signs (last 24 hours): Temp Pulse Resp BP Pulse Ox 97.9 F 77 20 124/81 99 04/19/17 08:42 04/19/17 08:42 04/19/17 08:42 04/19/17 08:42 04/19/17 08:42 - Medications Medications: Current Medications Acetaminophen (Tylenol 325mg Tab) 650 mg PO Q4 PRN PRN Reason: Pain, Mild (1-3) Last Admin: 04/16/17 10:44 Dose: 650 mg Acetaminophen (Tylenol 325mg Tab) 650 mg PO Q4 PRN PRN Reason: Fever >100 F Last Admin: 04/18/17 00:03 Dose: 650 mg Acetaminophen/Butalbital/Caffeine (Fioricet) 2 tab PO Q4 PRN PRN Reason: Headache Last Admin: 04/18/17 23:13 Dose: 2 tab Clotrimazole (Lotrimin 1% Cream) [address] [facility] Last Admin: 04/19/17 09:02 Dose: 1 applic Doxycycline Hyclate (Doryx) [address] [facility] Last Admin: 04/19/17 09:03 Dose: 100 mg Enalapril Maleate (Vasotec) [address] [facility] Last Admin: 04/19/17 09:03 Dose: 10 mg Vancomycin HCl 1 gm/ Sodium (Chloride) 250 mls @ 166.667 mls/hr IVPB Q12 [facility] Last Admin: 04/19/17 09:03 Dose: 166.667 mls/hr Levofloxacin/Dextrose (Levaquin 500mg) 500 mg in 100 mls @ 100 mls/hr IVPB DAILY [facility] Last Admin: 04/18/17 08:15 Dose: 100 mls/hr Aztreonam 1 gm/ Sodium (Chloride) 100 mls @ 100 mls/hr IVPB Q8H [facility] Last Admin: 04/19/17 03:26 Dose: 100 mls/hr Morphine Sulfate (Morphine) 2 mg IVP Q4 PRN PRN Reason: Pain, severe (8-10) Last Admin: 04/19/17 09:13 Dose: 2 mg Pantoprazole Sodium (Protonix Ec Tab) 40 mg PO DAILY [facility] Last Admin: 04/19/17 09:04 Dose: 40 mg - Labs Labs: 04/18/17 06:15 04/18/17 06:15 PT 12.2 Seconds (9.8-13.1) 04/15/17 18:04 INR 1.2 (0.9-1.2) 04/15/17 18:04 APTT 26.2 Seconds (25.6-37.1) 04/15/17 18:04 - Constitutional Appears: Non-toxic, Chronically Ill - Head Exam Head Exam: NORMOCEPHALIC - Eye Exam Eye Exam: PERRL. absent: Scleral icterus - ENT Exam ENT Exam: Mucous Membranes Dry, Normal External Ear Exam - Neck Exam Neck Exam: absent: Lymphadenopathy - Respiratory Exam Respiratory Exam: Decreased Breath Sounds - Cardiovascular Exam Cardiovascular Exam: REGULAR RHYTHM - GI/Abdominal Exam GI & Abdominal Exam: Distended, Soft - Rectal Exam Rectal Exam: Deferred - Exam Exam: NORMAL INSPECTION - Extremities Exam Extremities Exam: absent: Pedal Edema - Back Exam Back Exam: absent: CVA tenderness (L), CVA tenderness (R) - Neurological Exam Neurological Exam: Alert, Awake - Psychiatric Exam Psychiatric exam: Anxious - Skin Skin Exam: Dry, Rash Assessment and Plan (1) Headache Status: Acute (2) Sepsis Status: Acute (3) COPD (chronic obstructive pulmonary disease) Status: Acute
[2017-04-19] MEDS: levoFLOXacin 500 mg in D5W 500 MG/100 ML BAG IVPB SCH (11:49)
[2017-04-20 07:38] VITALS: BP 141/91; PULSE 95; RESP 20; TEMP 98; O2SAT 98
[2017-04-20] MEDS: levoFLOXacin 500 mg in D5W 500 MG/100 ML BAG IVPB SCH (08:47)
[2017-04-20] MEDS: Pantoprazole 40 mg EC Tab PO SCH (08:52)
--- NOTE | 2017-04-20 13:29 | CP.PCM.DIS ---
Provider - Provider Date of Admission: 04/15/17 19:52 Attending physician: Chava Bosch MD Time Spent in preparation of Discharge (in minutes): 35 Diagnosis - Discharge Diagnosis (1) Skin rash Status: Acute (2) Thrombocytopenia Status: Acute (3) Headache Status: Acute (4) Sepsis Status: Acute (5) Anxiety Status: Acute (6) COPD (chronic obstructive pulmonary disease) Status: Acute (7) Diabetes mellitus Status: Acute (8) Hypertension Status: Acute (9) Inflammation of lung Status: Acute Hospital Course - Lab Results Lab Results: Micro Results 04/15/17 18:04 Blood-Venous Blood Culture - Preliminary NO GROWTH AFTER 4 DAYS 04/16/17 05:00 Urine,Clean Catch Urine Culture - Final No Growth (<1,000 CFU/ML) 04/15/17 06:30 Naris MRSA Culture (Admit) - Final MRSA NOT DETECTED Most Recent Lab Values WBC 9.6 K/uL (4.8-10.8) D 04/18/17 06:15 RBC 4.54 Mil/uL (4.40-5.90) 04/18/17 06:15 Hgb 14.7 g/dL (12.0-18.0) 04/18/17 06:15 Hct 43.1 % (35.0-51.0) 04/18/17 06:15 MCV 94.8 fl (80.0-94.0) H 04/18/17 06:15 MCH 32.3 pg (27.0-31.0) H 04/18/17 06:15 MCHC 34.0 g/dL (33.0-37.0) 04/18/17 06:15 RDW 12.8 % (11.5-14.5) 04/18/17 06:15 Plt Count 80 K/uL (130-400) L 04/18/17 06:15 MPV 10.5 fl (7.2-11.7) 04/18/17 06:15 Neut % (Auto) 26.0 % (50.0-75.0) L 04/18/17 06:15 Lymph % (Auto) 28.5 % (20.0-40.0) 04/18/17 06:15 [place] % (Auto) 45.1 % (0.0-10.0) H 04/18/17 06:15 Eos % (Auto) 0.1 % (0.0-4.0) 04/18/17 06:15 Baso % (Auto) 0.3 % (0.0-2.0) 04/18/17 06:15 Neut # 2.5 K/uL (1.8-7.0) 04/18/17 06:15 Lymph # 2.7 K/uL (1.0-4.3) 04/18/17 06:15 [place] # 4.3 K/uL (0.0-0.8) H 04/18/17 06:15 Eos # 0.0 K/uL (0.0-0.7) 04/18/17 06:15 Baso # 0.0 K/uL (0.0-0.2) 04/18/17 06:15 Neutrophils % (Manual) 29 % (42-75) L 04/18/17 06:15 Band Neutrophils % 4 % (0-2) H 04/18/17 06:15 Lymphocytes % (Manual) 15 % (20-50) L 04/18/17 06:15 Reactive Lymphs % 12 % (0-0) H 04/18/17 06:15 Monocytes % (Manual) 40 % (0-10) H 04/18/17 06:15 Metamyelocytes % 1 % (0-0) H 04/17/17 06:00 Platelet Estimate Decreased (NORMAL) L 04/18/17 06:15 Giant Platelets Present 04/15/17 18:04 RBC Morphology Normal (NORMAL) 04/18/17 06:15 ESR 16 mm/hr (0-20) 04/16/17 05:00 PT 12.2 Seconds (9.8-13.1) 04/15/17 18:04 INR 1.2 (0.9-1.2) 04/15/17 18:04 APTT 26.2 Seconds (25.6-37.1) 04/15/17 18:04 Fibrinogen 313 mg/dl (200-400) 04/17/17 15:10 pO2 47 mm/Hg (30-55) 04/15/17 18:01 VBG pH 7.55 (7.32-7.43) H 04/15/17 18:01 VBG pCO2 24 mmHg (40-60) L 04/15/17 18:01 VBG HCO3 24.8 mmol/L 04/15/17 18:01 VBG Total CO2 21.7 mmol/L (22-28) L 04/15/17 18:01 VBG O2 Sat (Calc) 90.5 % (40-65) H 04/15/17 18:01 VBG Base Excess 0.2 mmol/L (0.0-2.0) 04/15/17 18:01 VBG Potassium 4.2 mmol/L (3.6-5.2) 04/15/17 18:01 Sodium 133.0 mmol/L (132-148) 04/15/17 18:01 Chloride 100.0 mmol/L (98-107) 04/15/17 18:01 Glucose 194 mg/dL (75-110) H 04/15/17 18:01 Lactate 1.9 mmol/L (0.7-2.1) 04/15/17 18:01 FiO2 21.0 % 04/15/17 18:01 Sodium 135 mmol/l (132-148) 04/18/17 06:15 Potassium 3.9 MMOL/L (3.6-5.0) 04/18/17 06:15 Chloride 98 mmol/L (98-107) 04/18/17 06:15 Carbon Dioxide 24 mmol/L (22-30) 04/18/17 06:15 Anion Gap 16 (10-20) 04/18/17 06:15 BUN 9 mg/dl (9-20) 04/18/17 06:15 Creatinine 0.8 mg/dL (0.8-1.5) 04/18/17 06:15 Est GFR ( Amer) > 60 04/18/17 06:15 Est GFR (Non-Af Amer) > 60 04/18/17 06:15 POC Glucose (mg/dL) 326 mg/dL (65-110) H 04/20/17 10:46 Random Glucose 199 mg/dL (75-110) H 04/18/17 06:15 Lactic Acid 1.4 MMOL/L (0.7-2.1) 04/17/17 15:10 Calcium 8.2 mg/dL (8.4-10.2) L 04/18/17 06:15 Total Bilirubin 0.4 mg/dl (0.2-1.3) 04/18/17 06:15 AST 70 U/L (17-59) H 04/18/17 06:15 ALT 103 U/L (21-72) H 04/18/17 06:15 Alkaline Phosphatase 71 U/L (38-126) 04/18/17 06:15 Troponin I < 0.0120 ng/mL (0.00-0.120) 04/15/17 18:04 Total Protein 7.1 G/DL (6.3-8.2) 04/18/17 06:15 Albumin 3.9 g/dL (3.5-5.0) 04/18/17 06:15 Globulin 3.2 gm/dL (2.2-3.9) 04/18/17 06:15 Albumin/Globulin Ratio 1.2 (1.0-2.1) 04/18/17 06:15 Procalcitonin 0.35 NG/ML (0.19-0.49) 04/17/17 15:10 Venous Blood Potassium 4.2 mmol/L (3.6-5.2) 04/15/17 18:01 Urine Color Yellow (YELLOW) 04/16/17 06:30 Urine Clarity Clear (Clear) 04/16/17 06:30 Urine pH 6.0 (5.0-8.0) 04/16/17 06:30 Ur Specific [place] 1.039 (1.003-1.030) H 04/16/17 06:30 Urine Protein 30 mg/dL (NEGATIVE) 04/16/17 06:30 Urine Glucose (UA) >=500 mg/dL (Normal) 04/16/17 06:30 Urine Ketones 20 mg/dL (NEGATIVE) 04/16/17 06:30 Urine Blood Negative (NEGATIVE) 04/16/17 06:30 Urine Nitrate Negative (NEGATIVE) 04/16/17 06:30 Urine Bilirubin Negative (NEGATIVE) 04/16/17 06:30 Urine Urobilinogen 0.2-1.0 mg/dL (0.2-1.0) 04/16/17 06:30 Ur Leukocyte Esterase Neg [place]/uL (Negative) 04/16/17 06:30 Urine RBC (Auto) 1 /hpf (0-3) 04/16/17 06:30 Urine Microscopic WBC < 1 /hpf (0-5) 04/16/17 06:30 Ur Squamous Epith Cells < 1 /hpf (0-5) 04/16/17 06:30 Vancomycin Trough < 5.0 ug/mL (5.0-10.0) L 04/18/17 08:00 Lyme Disease Screen <0.90 index 04/16/17 12:50 EBV Capsid Ag IgG Ab >750.00 U/mL H 04/17/17 15:10 EBV Capsid Ag IgM Ab <36.00 U/mL 04/17/17 15:10 EBV Nuclear Antigen Ab >600.00 U/mL H 04/17/17 15:10 EBV Interpretation See note 04/17/17 15:10 Hepatitis A IgM Ab Negative (NEGATIVE) 04/17/17 15:10 Hep Bs Antigen Negative (NEGATIVE) 04/17/17 15:10 Hep B Core IgM Ab Negative (NEGATIVE) 04/17/17 15:10 Hepatitis C Antibody Negative (NEGATIVE) 04/17/17 15:10 HIV 1&2 Antibody Screen Negative (NEGATIVE) 04/17/17 15:10 Infectious [place] Assay Negative (NEGATIVE) 04/17/17 15:10 Influenza Typ A,B (EIA) Negative for flu a/b (NEGATIVE) 04/17/17 14:28 TB Test (QFT) Nil 0.14 IU/mL 04/18/17 12:30 TB Test Mitogen - Nil 9.48 IU/mL 04/18/17 12:30 TB Test TB - Nil <0.00 IU/mL 04/18/17 12:30 TB Test (QFT) Negative (Negative) 04/18/17 12:30 VZV IgG Antibody 1615.00 index 04/19/17 11:02 - Hospital Course Hospital Course: feels better no fever all cultures negative Discharge Exam - Head Exam Head Exam: NORMOCEPHALIC - Eye Exam Eye Exam: EOMI, Normal appearance, PERRL Pupil Exam: NORMAL ACCOMODATION, PERRL - GI/Abdominal Exam GI & Abdominal Exam: Normal Bowel Sounds - Rectal Exam Rectal Exam: NORMAL INSPECTION - Neurological Exam Neurological exam: Alert, CN II-XII Intact, Normal Gait, Oriented x3, Reflexes Normal - Psychiatric Exam Psychiatric exam: Normal Affect, Normal Mood - Skin Skin Exam: Dry, Intact, Normal Color, Rash, Warm Discharge Plan - Follow Up Plan Condition: FAIR Disposition: HOME/ ROUTINE Patient education suggested?: Yes Instructions: Acute Headache (DC), Acute Rash (DC) Additional Instructions: discharge today on po levaquin repeat cxr and labs as out pt dermatology eval as outpt Referrals: Balta Marshall MD [Staff Provider] - Chava Bosch MD [Staff Provider] -
--- NOTE | 2017-04-20 14:01 | CP.PCM.PN ---
Subjective - Date & Time of Evaluation Date of Evaluation: 04/20/17 Time of Evaluation: 08:00 - Subjective Subjective: improving afebrile no bleeding eating well d/c home on po rx Objective - Vital Signs/Intake and Output Vital Signs (last 24 hours): Temp Pulse Resp BP Pulse Ox 98 F 95 H 20 141/91 H 98 04/20/17 07:37 04/20/17 07:37 04/20/17 07:37 04/20/17 07:37 04/20/17 07:37 - Medications Medications: Current Medications Acetaminophen (Tylenol 325mg Tab) 650 mg PO Q4 PRN PRN Reason: Pain, Mild (1-3) Last Admin: 04/16/17 10:44 Dose: 650 mg Acetaminophen (Tylenol 325mg Tab) 650 mg PO Q4 PRN PRN Reason: Fever >100 F Last Admin: 04/18/17 00:03 Dose: 650 mg Acetaminophen/Butalbital/Caffeine (Fioricet) 2 tab PO Q4 PRN PRN Reason: Headache Last Admin: 04/18/17 23:13 Dose: 2 tab Clotrimazole (Lotrimin 1% Cream) 1 applic TOP BID [facility] Last Admin: 04/20/17 08:55 Dose: 1 applic Doxycycline Hyclate (Doryx) 100 mg PO Q12 [facility] Last Admin: 04/20/17 08:52 Dose: 100 mg Enalapril Maleate (Vasotec) 10 mg PO DAILY [facility] Last Admin: 04/20/17 08:52 Dose: 10 mg Levofloxacin/Dextrose (Levaquin 500mg) 500 mg in 100 mls @ 100 mls/hr IVPB DAILY [facility] Last Admin: 04/20/17 08:47 Dose: 100 mls/hr Insulin Human Regular (Humulin R) 0 units SC ACHS [facility] PRN Reason: Protocol Last Admin: 04/20/17 13:11 Dose: 6 units Metformin HCl (Glucophage) 1,000 mg PO BIDWM [facility] Morphine Sulfate (Morphine) 2 mg IVP Q4 PRN PRN Reason: Pain, severe (8-10) Last Admin: 04/20/17 08:44 Dose: 2 mg Pantoprazole Sodium (Protonix Ec Tab) 40 mg PO DAILY [facility] Last Admin: 04/20/17 08:52 Dose: 40 mg Sitagliptin Phosphate (Januvia) 50 mg PO BID [facility]IN[facility] - Labs Labs: 04/18/17 06:15 04/18/17 06:15 PT 12.2 Seconds (9.8-13.1) 04/15/17 18:04 INR 1.2 (0.9-1.2) 04/15/17 18:04 APTT 26.2 Seconds (25.6-37.1) 04/15/17 18:04 - Constitutional Appears: Non-toxic, Chronically Ill - Head Exam Head Exam: NORMOCEPHALIC - Eye Exam Eye Exam: PERRL - ENT Exam ENT Exam: Mucous Membranes Dry - Neck Exam Neck Exam: absent: Lymphadenopathy - Respiratory Exam Respiratory Exam: Decreased Breath Sounds - Cardiovascular Exam Cardiovascular Exam: REGULAR RHYTHM - GI/Abdominal Exam GI & Abdominal Exam: Distended, Soft - Rectal Exam Rectal Exam: Deferred - Exam Exam: NORMAL INSPECTION - Extremities Exam Extremities Exam: absent: Pedal Edema - Back Exam Back Exam: absent: CVA tenderness (L), CVA tenderness (R) - Neurological Exam Neurological Exam: Alert, Awake, Oriented x3 - Psychiatric Exam Psychiatric exam: Normal Mood - Skin Skin Exam: Dry, Rash Assessment and Plan (1) Headache Status: Acute (2) Sepsis Status: Acute (3) COPD (chronic obstructive pulmonary disease) Status: Acute - Assessment and Plan (Free Text) Assessment: cont rx and workup as out pt
[2017-04-20] MEDS ORDERED: Insulin Regular 100 units/ml SC SCH (16:30)
[2017-04-20 18:40] LABS: BABESIOSIS AB IGG <1:64; BABESIOSIS AB IGM <1:20
[2017-04-21 17:41] LABS: LYME IGG NEGATIVE (NEGATIVE)
[2017-04-21 17:56] LABS: LYME IGM NEGATIVE (NEGATIVE)
== END 2017-04-20 14:46 | disposition home or self-care (01) | DRG 872 ==
LOC: H.ER 17:22 → H.ERHOLD 19:52 → H.ICU/CCU 22:29 → H.MEDSURG1 04-16 15:37
PROVIDERS: ADMIT Internal Medicine Pulmonary Disease; ATTEND Internal Medicine Pulmonary Disease
DX: A41.9 Sepsis, unspecified organism (principal); E11.65 Type 2 diabetes mellitus with hyperglycemia; D69.59 Other secondary thrombocytopenia; I10 Essential (primary) hypertension; J44.9 Chronic obstructive pulmonary disease, unspecified; R51 Headache; K21.9 Gastro-esophageal reflux disease without esophagitis; R65.20 Severe sepsis without septic shock; R21 Rash and other nonspecific skin eruption; F41.9 Anxiety disorder, unspecified; J98.4 Other disorders of lung; Z87.891 Personal history of nicotine dependence

== ENCOUNTER 2017-09-09 09:41 | Emergency (ER) | payer BC ==
[2017-09-09 09:41] VITALS: BMI 25.0
[2017-09-09 10:40] VITALS: BP 141/100; PULSE 105; RESP 20; TEMP 98.2; O2SAT 97
[2017-09-09] MEDS ORDERED: Naproxen 500 MG TAB PO STA (11:06)
[2017-09-09] MEDS ORDERED: Naproxen 500 MG TAB PO ONE (11:15)
--- NOTE | 2017-09-09 11:48 | ED PDOC ---
HPI: General Adult Time Seen by Provider: 09/09/17 10:22 Chief Complaint (Nursing): Flu-like Symptoms Chief Complaint (Provider): Fever History Per: Patient History/Exam Limitations: no limitations Onset/Duration Of Symptoms: Days (5x) Current Symptoms Are (Timing): Still Present Additional History Per: Family () Additional Complaint(s): Oseas Granger, a 52 year old male presents to the ED complaining of fever onset 5 days ago. Reports of associated symptoms of non-productive cough, pleuritic chest pain, and body aches. His also has similar symptoms and is present with him in the ED. PMD: Chava Bosch Past Medical History Reviewed: Historical Data, Nursing Documentation, Vital Signs Vital Signs: Last Vital Signs Temp 98.2 F 09/09/17 10:35 Pulse 105 H 09/09/17 10:35 Resp 20 09/09/17 10:35 BP 141/100 H 09/09/17 10:35 Pulse Ox 97 09/09/17 12:34 - Medical History PMH: COPD, Diabetes, Emphysema, HTN Denies: Chronic Kidney Disease - Surgical History Surgical History: Appendectomy, Endoscopy - Family History Family History: States: Unknown Family Hx - Social History Current smoker - smoking cessation education provided: No Alcohol: None Drugs: Denies - Home Medications Home Medications: Ambulatory Orders Medication Instructions Recorded Enalapril [Vasotec] 10 mg PO DAILY 11/02/13 Canagliflozin [Invokana] 100 mg PO QPM 02/08/15 Valacyclovir HCl [Valtrex] 1,000 mg PO DAILY 03/24/16 Vitamin A 1 cap PO DAILY 03/24/16 Vitamin E 1,000 unit PO DAILY 03/24/16 Dexlansoprazole [Dexilant] 60 mg PO DAILY 04/15/17 Sitagliptin Phos/Metformin HCl 1 tab PO BID 04/15/17 [Janumet 50-1,000 mg Tablet] Levofloxacin [Levaquin] 500 mg PO DAILY #7 tablet 04/20/17 Albuterol 0.083% [Albuterol 0.083% 3 ml IH Q6H PRN #30 neb 09/09/17 Inhal Miri (2.5 mg/3 ml) UD] Azithromycin [Zithromax Tri-Cody] 500 mg PO DAILY #3 tablet 09/09/17 Naproxen [Naprosyn] 500 mg PO BID PRN #15 tablet 09/09/17 Nebulizer [Compact Compressor 1 dev XX PRN PRN #1 dev 09/09/17 Nebulizer] - Allergies Allergies/Adverse Reactions: Allergies Allergy/AdvReac Type Severity Reaction Status Date / Time cephalexin Allergy ITCHING Verified 03/24/16 13:37 Cephalosporins Allergy ITCHING Verified 03/24/16 13:37 Sulfa (Sulfonamide Allergy ITCHING Verified 03/24/16 13:37 Antibiotics) sulfamethoxazole Allergy ITCHING Verified 03/24/16 13:37 [From Bactrim] trimethoprim [From Bactrim] Allergy ITCHING Verified 03/24/16 13:37 Review of Systems ROS Statement: Except As Marked, All Systems Reviewed And Found Negative Constitutional: Positive for: Fever Cardiovascular: Positive for: Chest Pain (pleuritic chest pain) Respiratory: Positive for: Cough (non-productive) Musculoskeletal: Positive for: Other (body ache) Physical Exam - Reviewed Nursing Documentation Reviewed: Yes Vital Signs Reviewed: Yes - Physical Exam Appears: Positive for: Well, Non-toxic, No Acute Distress Head Exam: Positive for: ATRAUMATIC, NORMAL INSPECTION, NORMOCEPHALIC Skin: Positive for: Normal Color, Warm, Dry Eye Exam: Positive for: Normal appearance, EOMI, PERRL ENT: Positive for: Normal ENT Inspection Neck: Positive for: Normal, Painless ROM, Supple Cardiovascular/Chest: Positive for: Regular Rate, Rhythm, Other (tenderness of the midsternum) Respiratory: Positive for: Normal Breath Sounds. Negative for: Wheezing, Respiratory Distress Gastrointestinal/Abdominal: Positive for: Normal Exam, Bowel Sounds, Soft. Negative for: Tenderness Back: Positive for: Normal Inspection. Negative for: L CVA Tenderness, R CVA Tenderness Extremity: Positive for: Normal ROM. Negative for: Pedal Edema, Deformity Neurologic/Psych: Positive for: Alert, Oriented (x3), Gait - ECG O2 Sat by Pulse Oximetry: 97 (RA) Pulse Ox Interpretation: Normal Medical Decision Making Medical Decision Making: Time: 10:43 Impression:Flu-viral symptoms Initial Plan: --EKG --Chest X-ray --Naproxen 500mg --Influenza A B --Reevaluation Time: 12:33 FINDINGS: LUNGS: No active pulmonary disease. PLEURA: No significant pleural effusion identified. No pneumothorax apparent. CARDIOVASCULAR: Normal. OSSEOUS STRUCTURES: Unchanged. VISUALIZED UPPER ABDOMEN: Normal. OTHER FINDINGS: None. IMPRESSION: No active disease. Documented by Jolanta Rizzo acting as a scribe for Aleisha Marcano MD. All medical record entries made by the Scribe were at my direction and personally dictated by me. I have reviewed the chart and agree that the record accurately reflects my personal performance of the history, physical exam, medical decision making, and the department course for this patient. I have also personally directed, reviewed, and agree with the discharge instructions and disposition. Disposition - Clinical Impression Clinical Impression: URI (upper respiratory infection) - Disposition Referrals: Chava Bosch MD [Family Provider] - Disposition: Routine/Home Disposition Time: 13:43 Condition: STABLE Prescriptions: Albuterol 0.083% [Albuterol 0.083% Inhal Miri (2.5 mg/3 ml) UD] 3 ml IH Q6H PRN # 30 neb PRN Reason: Shortness Of Breath Azithromycin [Zithromax Tri-Cody] 500 mg PO DAILY #3 tablet Naproxen [Naprosyn] 500 mg PO BID PRN #15 tablet PRN Reason: Pain, Moderate (4-7) Nebulizer [Compact Compressor Nebulizer] 1 dev XX PRN PRN #1 dev PRN Reason: Shortness Of Breath Instructions: Upper Respiratory Infection (ED) Forms: [employer] (Danish)
--- NOTE | 2017-09-09 12:21 | RAD ---
HISTORY: Cough COMPARISON: Chest radiograph dated 04/15/2017. TECHNIQUE: Chest PA and lateral FINDINGS: LUNGS: No active pulmonary disease. PLEURA: No significant pleural effusion identified. No pneumothorax apparent. CARDIOVASCULAR: Normal. OSSEOUS STRUCTURES: Unchanged. VISUALIZED UPPER ABDOMEN: Normal. OTHER FINDINGS: None. IMPRESSION: No active disease.
--- NOTE | 2017-09-10 10:27 | CARD ---
APPROVED REPORT EKG Measurement Heart [id number] [id number] <Conclusion> Normal sinus rhythm Normal ECG
== END 2017-09-09 14:02 | disposition home or self-care (01) ==
LOC: H.ER 09:41
DX: J06.9 Acute upper respiratory infection, unspecified (principal); J44.9 Chronic obstructive pulmonary disease, unspecified; E11.9 Type 2 diabetes mellitus without complications; I10 Essential (primary) hypertension; Z79.84 Long term (current) use of oral hypoglycemic drugs

== ENCOUNTER 2018-07-27 11:35 | Inpatient (IN) | payer BC ==
[2018-07-27 11:43] VITALS: BMI 24.4
[2018-07-27] MEDS ORDERED: Albuterol-Ipratrop 3 mg / 0.5 (3 ml) UD IH STA ×2 (12:12→12:13)
--- NOTE | 2018-07-27 12:26 | ED PDOC ---
HPI: General Adult Time Seen by Provider: 07/27/18 11:59 Chief Complaint (Nursing): Respiratory Distress Chief Complaint (Provider): Cough, Chest Pain, Shortness Of Breath History Per: Patient History/Exam Limitations: no limitations Onset/Duration Of Symptoms: Days (x1) Current Symptoms Are (Timing): Still Present Additional Complaint(s): Oseas Kong is a 53 year old male referred by his PMD after failed outpatient treatments for COPD. Patient reports using steroids, nebulizers, and antibiotics. Patient further reports multiple courses of treatment with no improvement of symptoms. Patient is complaning of a non-productive cough, chest pain, and shortness of breath. Patient denies any fever. Past Medical History Reviewed: Historical Data, Nursing Documentation, Vital Signs Vital Signs: Last Vital Signs Temp 97.8 F 07/27/18 11:43 Pulse 85 07/27/18 11:43 Resp 16 07/27/18 12:06 BP 145/83 07/27/18 11:43 Pulse Ox 98 07/27/18 11:43 - Medical History PMH: COPD, Diabetes, Emphysema, Gastritis, HTN Denies: Chronic Kidney Disease - Surgical History Surgical History: Appendectomy, Endoscopy - Family History Family History: States: Unknown Family Hx - Home Medications Home Medications: Ambulatory Orders Medication Instructions Recorded Enalapril [Vasotec] 10 mg PO DAILY 11/02/13 Canagliflozin [Invokana] 100 mg PO QPM 02/08/15 Valacyclovir HCl [Valtrex] 1,000 mg PO DAILY 03/24/16 Vitamin A 1 cap PO DAILY 03/24/16 Vitamin E 1,000 unit PO DAILY 03/24/16 Dexlansoprazole [Dexilant] 60 mg PO DAILY 04/15/17 Sitagliptin Phos/Metformin HCl 1 tab PO BID 04/15/17 [Janumet 50-1,000 mg Tablet] Levofloxacin [Levaquin] 500 mg PO DAILY #7 tablet 04/20/17 Albuterol 0.083% [Albuterol 0.083% 3 ml IH Q6H PRN #30 neb 09/09/17 Inhal Miri (2.5 mg/3 ml) UD] Azithromycin [Zithromax Tri-Cody] 500 mg PO DAILY #3 tablet 09/09/17 Naproxen [Naprosyn] 500 mg PO BID PRN #15 tablet 09/09/17 Nebulizer [Compact Compressor 1 dev XX PRN PRN #1 dev 09/09/17 Nebulizer] - Allergies Allergies/Adverse Reactions: Allergies Allergy/AdvReac Type Severity Reaction Status Date / Time cephalexin Allergy ITCHING Verified 03/24/16 13:37 Cephalosporins Allergy ITCHING Verified 03/24/16 13:37 Sulfa (Sulfonamide Allergy ITCHING Verified 03/24/16 13:37 Antibiotics) sulfamethoxazole Allergy ITCHING Verified 03/24/16 13:37 [From Bactrim] trimethoprim [From Bactrim] Allergy ITCHING Verified 03/24/16 13:37 Review of Systems ROS Statement: Except As Marked, All Systems Reviewed And Found Negative Constitutional: Negative for: Fever Cardiovascular: Positive for: Chest Pain Respiratory: Positive for: Cough, Shortness of Breath. Negative for: Sputum Physical Exam - Reviewed Nursing Documentation Reviewed: Yes Vital Signs Reviewed: Yes - Physical Exam Appears: Positive for: Non-toxic, No Acute Distress Head Exam: Positive for: ATRAUMATIC, NORMAL INSPECTION, NORMOCEPHALIC Skin: Positive for: Normal Color, Warm, Dry. Negative for: Rash Eye Exam: Positive for: EOMI, Normal appearance, PERRL ENT: Positive for: Normal ENT Inspection Neck: Positive for: Normal, Painless ROM, Supple Cardiovascular/Chest: Positive for: Regular Rate, Rhythm. Negative for: Murmur Respiratory: Positive for: Decreased Breath Sounds, Rhonchi Gastrointestinal/Abdominal: Positive for: Normal Exam, Soft. Negative for: Tenderness Back: Positive for: Normal Inspection. Negative for: L CVA Tenderness, R CVA Tenderness, Vertebral Tenderness Extremity: Positive for: Normal ROM. Negative for: Pedal Edema, Deformity Neurologic/Psych: Positive for: Alert, Oriented. Negative for: Motor/Sensory Deficits - ECG O2 Sat by Pulse Oximetry: 98 (RA) Pulse Ox Interpretation: Normal Medical Decision Making Medical Decision Making: Plan: Exacerbation of COPD; failed outpatient treatment. Will admit for nebulizers, IV steroids, and pulmonary monitoring. -EKG -CMP -CBC -CXR -Duonebs 3mL IH x2 -Levofloxacin 500mg IVPB -Solu-Medrol 125mg IVP -Blood cultures -Admit to med/surg under the service of Dr. Bosch -Reevaluation Scribe Attestation: Documented by Beau Natarajan, acting as a scribe for Howie Soni MD. Provider Scribe Attestation: All medical record entries made by the Scribe were at my direction and personally dictated by me. I have reviewed the chart and agree that the record accurately reflects my personal performance of the history, physical exam, medical decision making, and the department course for this patient. I have also personally directed, reviewed, and agree with the discharge instructions and disposition. Disposition - Clinical Impression Clinical Impression: Acute bronchitis with chronic obstructive pulmonary disease (COPD), Failure of outpatient treatment - Patient ED Disposition Is Patient to be Admitted: Yes - Disposition Disposition Time: 12:37 Condition: FAIR Forms: [employer] (Divehi) - Pt Status Changed To: Hospital Disposition Of: Inpatient - Admit Certification Admit to Inpatient:: After my assessment, the patient will require hospitali zation for at least two midnights. This is because of the severity of symptoms shown, intensity of services needed, and/or the medical risk in this patient being treated as an outpatient. - POA Present On Arrival: None
[2018-07-27] MEDS ORDERED: Albuterol-Ipratrop 3 mg / 0.5 (3 ml) UD ONE (12:38)
[2018-07-27 12:46] LABS: ALB/GLOB RATIO 1.3 (1.0-2.1); ALBUMIN 4.5 g/dL (3.5-5.0); ALT/SGPT 40 U/L (21-72); AST/SGOT 35 U/L (17-59); BLOOD UREA NITROGEN 12 mg/dl (9-20); CALCIUM 8.9 mg/dL (8.4-10.2); GFR NON-AFRICAN AMERICAN > 60
[2018-07-27 12:47] LABS: BASO # 0.1 K/uL (0.0-0.2); EOS % 0.3 % (0.0-4.0); HEMOGLOBIN 13.6 g/dL (12.0-18.0); LYMPH % 25.2 % (20.0-40.0); MEAN CELL VOLUME 97.1 fl (80.0-94.0); MEAN CORPUSCULAR HEMOGLOBIN 32.5 pg (27.0-31.0); MEAN CORPUSCULAR HGB CONC 33.5 g/dL (33.0-37.0); MEAN PLATELET VOLUME 9.4 fl (7.2-11.7); MONO # 2.7 K/uL (0.0-0.8); MONO % 34.2 % (0.0-10.0); NEUT # 3.1 K/uL (1.8-7.0); NEUT % 39.3 % (50.0-75.0); NRBC % 0.1 % (0.0-0.0); PLATELET COUNT 141 K/uL (130-400); RBC 4.19 Mil/uL (4.40-5.90); RED CELL DISTRIBUTION WIDTH 13.7 % (11.5-14.5); WHITE BLOOD COUNT 7.9 K/uL (4.8-10.8)
--- NOTE | 2018-07-27 12:52 | RAD ---
Date of service: 07/27/2018 HISTORY: Cough COMPARISON: 09/09/2017. TECHNIQUE: Chest PA and lateral FINDINGS: LINES AND TUBES: None. LUNG AND PLEURA: The lungs are well inflated and clear. No pleural effusion or pneumothorax. HEART AND MEDIASTINUM: The heart is not enlarged. No aortic atherosclerotic calcification present. The hilar and mediastinal contours are within normal limits. SKELETAL STRUCTURES: The bony structures are within normal limits for the patient's age. VISUALIZED UPPER ABDOMEN: Normal. OTHER FINDINGS: None. IMPRESSION: No active pulmonary disease.
[2018-07-27] MEDS ORDERED: Promethazine/Cod 6.25mg-10mg/5ml Syr UD PO STA (13:09)
[2018-07-27] MEDS ORDERED: Promethazine 6.25 MG/5 ML CUP ONE (13:13)
[2018-07-27 13:21] LABS: ANISOCYTOSIS SLIGHT; BANDS 2 % (0-2); EOSINOPHIL 2 % (0-7); GIANT PLATELETS PRESENT; LARGE PLATELETS PRESENT; LYMPHOCYTE 28 % (20-50); MONOCYTE 28 % (0-10); NEUTROPHIL 39 % (42-75); PLATELET ESTIMATE NORMAL (NORMAL); REACTIVE LYMPHOCYTES 1 % (0-0); TOTAL CELLS COUNTED 100
[2018-07-27] MEDS ORDERED: Promethazine/Cod 6.25mg-10mg/5ml Syr UD ONE (13:22)
[2018-07-27] MEDS ORDERED: Oxycodone/Acetaminophen 5/325 mg Tab PO PRN (17:08)
[2018-07-27] MEDS: levoFLOXacin 500 mg in D5W 500 MG/100 ML BAG IVPB SCH (18:15)
--- NOTE | 2018-07-27 19:18 | CARD ---
APPROVED REPORT Date of service: 07/27/2018 EKG Measurement Heart [id number] 110P33 [id number] <Conclusion> Sinus rhythm with short OK Otherwise normal ECG
[2018-07-27] MEDS: Albuterol-Ipratrop 3 mg / 0.5 (3 ml) UD INH SCH (19:30)
[2018-07-27] MEDS ORDERED: Influenza Vaccine (5 YR UP)/PF 60 MCG/0.5 ML SYR IM ONE (20:00)
[2018-07-27] MEDS: Promethazine/Cod 6.25mg-10mg/5ml Syr UD PO PRN (21:28)
[2018-07-27] MEDS ORDERED: methylPREDNISolone 60 MG in Sodium Chloride 0.9% 50 ML IV SCH (22:00)
[2018-07-27] MEDS ORDERED: Oxycodone/Acetaminophen 5/325 mg Tab PO STA (22:24)
[2018-07-28] MEDS: Albuterol-Ipratrop 3 mg / 0.5 (3 ml) UD INH SCH ×4 (01:03→19:13)
[2018-07-28] MEDS: Pantoprazole 40 mg EC Tab PO SCH (08:11)
[2018-07-28] MEDS: levoFLOXacin 500 mg in D5W 500 MG/100 ML BAG IVPB SCH (08:14)
[2018-07-28] MEDS ORDERED: levoFLOXacin 500 mg in D5W 500 MG/100 ML BAG IVPB SCH (09:00)
[2018-07-28] MEDS ORDERED: Oxycodone/Acetaminophen 5/325 mg Tab PO PRN ×3 (12:26→13:12)
[2018-07-28] MEDS ORDERED: HYDROmorphone 1 mg/ml ISec IVP PRN (12:26)
[2018-07-28] MEDS ORDERED: Sodium Chloride 3% for Inhalation 4 ML VIAL.NEB IH PRN (12:29)
--- NOTE | 2018-07-28 12:36 | CP.PCM.HP ---
History of Present Illness - History of Present Illness History of Present Illness: 53 YR OLD MALE ADMITTED WITH COUGH,SORETHROAT,SHORTNESS OF BREATH,CHEST PAINS AND EXERCISE INTOLERANCE X 3-4 WEEKS.HE HAS FAILED COMPREHENSIVE OUTPT MEDICAL THERAPY.C/O CHILLS AND BODYACHES. HX OF DM,HTN,LYMPHOPROLIFERATIVE HEAD AND NECK DZ FAMILY [id number] AND HTN SOCIAL HX-FORMER SMOKER/NO DRUG OR ALCOHOL USE Present on Admission - Present on Admission Any Indicators Present on Admission: No Past Patient History - Past Medical History & Family History Past Medical History?: Yes - Past Social History Smoking Status: Former Smoker - CARDIAC Hx Cardiac Disorders: Yes Hx Hypertension: Yes - PULMONARY Hx Respiratory Disorders: Yes Hx Chronic Obstructive Pulmonary Disease (COPD): Yes Hx Emphysema: Yes - NEUROLOGICAL Hx Neurological Disorder: No - HEENT Hx HEENT Problems: No - RENAL Hx Chronic Kidney Disease: No - ENDOCRINE/METABOLIC Hx Endocrine Disorders: Yes (DM II) Hx Diabetes Mellitus Type 2: Yes - HEMATOLOGICAL/ONCOLOGICAL Hx Blood Disorders: No Hx AIDS: No Hx Human Immunodeficiency Virus (HIV): No - INTEGUMENTARY Hx Dermatological Problems: No - MUSCULOSKELETAL/RHEUMATOLOGICAL Hx Musculoskeletal Disorders: No Hx Falls: No - GASTROINTESTINAL Hx Gastrointestinal Disorders: Yes Hx Gastritis: Yes - GENITOURINARY/GYNECOLOGICAL Hx Genitourinary Disorders: No - PSYCHIATRIC Hx Psychophysiologic Disorder: No Hx Substance Use: No - SURGICAL HISTORY Hx Surgeries: Yes Hx Appendectomy: Yes - ANESTHESIA Hx Anesthesia: Yes Hx Anesthesia Reactions: No Hx Malignant Hyperthermia: No Has any member of the family had a problem w/ anesthesia?: No Meds Allergies/Adverse Reactions: Allergies Allergy/AdvReac Type Severity Reaction Status Date / Time cephalexin Allergy ITCHING Verified 03/24/16 13:37 Cephalosporins Allergy ITCHING Verified 03/24/16 13:37 Sulfa (Sulfonamide Allergy ITCHING Verified 03/24/16 13:37 Antibiotics) sulfamethoxazole Allergy ITCHING Verified 03/24/16 13:37 [From Bactrim] trimethoprim [From Bactrim] Allergy ITCHING Verified 03/24/16 13:37 Physical Exam - Constitutional Appears: In Acute Distress - Head Exam Head Exam: ATRAUMATIC, NORMAL INSPECTION, NORMOCEPHALIC - Eye Exam Eye Exam: EOMI, Normal appearance, PERRL Pupil Exam: NORMAL ACCOMODATION, PERRL - ENT Exam ENT Exam: Mucous Membranes Moist, Normal Exam - Neck Exam Neck exam: Positive for: Normal Inspection - Respiratory Exam Respiratory Exam: Chest Wall Tenderness, Decreased Breath Sounds, Prolonged Expiratory Phase, Rales, Wheezes, NORMAL BREATHING PATTERN - Cardiovascular Exam Cardiovascular Exam: REGULAR RHYTHM - GI/Abdominal Exam GI & Abdominal Exam: Normal Bowel Sounds, Soft. absent: Tenderness - Rectal Exam Rectal Exam: NORMAL INSPECTION - Extremities Exam Extremities exam: Positive for: normal inspection - Back Exam Back exam: NORMAL INSPECTION - Neurological Exam Neurological exam: Alert, CN II-XII Intact, Normal Gait, Oriented x3, Reflexes Normal - Psychiatric Exam Psychiatric exam: Normal Affect, Normal Mood - Skin Skin Exam: Dry, Intact, Normal Color, Warm Results - Vital Signs Recent Vital Signs: Last Vital Signs Temp 97.8 F 07/28/18 12:00 Pulse 111 H 07/28/18 12:00 Resp 18 07/28/18 12:00 BP 142/85 07/28/18 12:00 Pulse Ox 97 07/28/18 12:00 - Labs Result Diagrams: 07/27/18 12:30 07/27/18 12:30 Labs: Laboratory Results - last 24 hr 07/27/18 07/27/18 07/27/18 12:30 12:30 13:28 WBC 7.9 RBC 4.19 L Hgb 13.6 Hct 40.7 MCV 97.1 H D MCH 32.5 H MCHC 33.5 RDW 13.7 Plt Count 141 MPV 9.4 Neut % (Auto) 39.3 L Lymph % (Auto) 25.2 Canyon % (Auto) 34.2 H Eos % (Auto) 0.3 Baso % (Auto) 1.0 Neut # (Auto) 3.1 Lymph # (Auto) 2.0 [place] # (Auto) 2.7 H Eos # (Auto) 0.0 Baso # (Auto) 0.1 Neutrophils % (Manual) 39 L Band Neutrophils % 2 Lymphocytes % (Manual) 28 Reactive Lymphs % 1 H Monocytes % (Manual) 28 H Eosinophils % (Manual) 2 Platelet Estimate Normal Large Platelets Present Giant Platelets Present Anisocytosis (manual) Slight Sodium 142 Potassium 3.9 Chloride 106 Carbon Dioxide 24 Anion Gap 16 BUN 12 Creatinine 0.6 L Est GFR ( Amer) > 60 Est GFR (Non-Af Amer) > 60 POC Glucose (mg/dL) 105 Random Glucose 130 H Calcium 8.9 Total Bilirubin 0.1 L AST 35 ALT 40 Alkaline Phosphatase 78 Total Protein 8.0 Albumin 4.5 Globulin 3.5 Albumin/Globulin Ratio 1.3 07/27/18 07/27/18 07/28/18 16:56 21:27 05:07 WBC RBC Hgb Hct MCV MCH MCHC RDW Plt Count MPV Neut % (Auto) Lymph % (Auto) Canyon % (Auto) Eos % (Auto) Baso % (Auto) Neut # (Auto) Lymph # (Auto) [place] # (Auto) Eos # (Auto) Baso # (Auto) Neutrophils % (Manual) Band Neutrophils % Lymphocytes % (Manual) Reactive Lymphs % Monocytes % (Manual) Eosinophils % (Manual) Platelet Estimate Large Platelets Giant Platelets Anisocytosis (manual) Sodium Potassium Chloride Carbon Dioxide Anion Gap BUN Creatinine Est GFR ( Amer) Est GFR (Non-Af Amer) POC Glucose (mg/dL) 268 H 278 H 261 H Random Glucose Calcium Total Bilirubin AST ALT Alkaline Phosphatase Total Protein Albumin Globulin Albumin/Globulin Ratio 07/28/18 10:52 WBC RBC Hgb Hct MCV MCH MCHC RDW Plt Count MPV Neut % (Auto) Lymph % (Auto) [place] % (Auto) Eos % (Auto) Baso % (Auto) Neut # (Auto) Lymph # (Auto) [place] # (Auto) Eos # (Auto) Baso # (Auto) Neutrophils % (Manual) Band Neutrophils % Lymphocytes % (Manual) Reactive Lymphs % Monocytes % (Manual) Eosinophils % (Manual) Platelet Estimate Large Platelets Giant Platelets Anisocytosis (manual) Sodium Potassium Chloride Carbon Dioxide Anion Gap BUN Creatinine Est GFR ( Amer) Est GFR (Non-Af Amer) POC Glucose (mg/dL) 325 H Random Glucose Calcium Total Bilirubin AST ALT Alkaline Phosphatase Total Protein Albumin Globulin Albumin/Globulin Ratio Assessment & Plan - Assessment and Plan (Free Text) Assessment: ACUTE EXAC OF COPD P[LEURITIC CHEST PAINS URI DM WITH HYPERGLYCEMIA HYPERTENSION Plan: SEE [facility] WILL OBTAIN CT SCAN OF CHEST TO R/O OTHER SUPERIMPOSED PULMONARY DZ - Date & Time Date: 07/28/18 Time: 12:38
[2018-07-28 13:32] LABS: ABG ALLEN TEST YES; ARTERIAL BLOOD GAS HCO3 20.4 mmol/L (21-28); ARTERIAL BLOOD GAS HEMOGLOBIN 14.6 g/dL (11.7-17.4); ARTERIAL BLOOD GAS O2 CAPACITY 19.8 mL/dL (16-24); ARTERIAL BLOOD GAS O2 CONTENT 17.8 ML/dL (15-23); ARTERIAL BLOOD GAS O2 SAT 89.7 % (95-98); ARTERIAL BLOOD GAS PCO2 28 mm/Hg (35-45); ARTERIAL BLOOD GAS PH 7.41 (7.35-7.45); ARTERIAL BLOOD GAS PO2 56 mm/Hg (80-100); ARTERIAL BLOOD GAS TCO2 18.6 mmol/L (22-28)
[2018-07-28] MEDS: Insulin Regular 100 units/ml SC SCH ×2 (16:13→21:57)
--- NOTE | 2018-07-28 17:14 | CT ---
Date of service: 07/28/2018 PROCEDURE: CT Chest without contrast. HISTORY: CHEST PAINS COMPARISON: None available. TECHNIQUE: Contiguous axial images were obtained through the chest without intravenous contrast enhancement. Sagittal and coronal reconstructions were performed. Radiation dose: Total exam DLP = 509.54 mGy-cm. This CT exam was performed using one or more of the following dose reduction techniques: Automated exposure control, adjustment of the mA and/or kV according to patient size, and/or use of iterative reconstruction technique. FINDINGS: LUNGS: Mild passive/dependent type atelectasis seen in the posterior lower lung foster.. There also appears to be some minor scarring in the left lingular region. Lung foster otherwise clear. The MEDIASTINUM: Heart size is within range of normal. No significant pericardial effusion. Unremarkable thoracic aorta. No aneurysm ascending thoracic aorta measures approximately 2.8 cm and descending thoracic aorta measures approximately 2.2 cm. No significant calcified atherosclerotic plaque. Pulmonary trunk measures approximately 2.6 cm. There are several small to medium-sized mediastinal lymph nodes, 2 of the largest located in the prevascular space abutting the lateral margin of the aortic arch 1st measuring approximately 16 mm and the 2nd measuring approximately 15.4 mm. Markedly enlarged right axillary lymph node measuring nearly 3.4 cm. There are also mildly enlarged left axillary lymph nodes 1 measuring nearly 19 mm and the next measuring approximately 12 mm. Clinical correlation recommended to exclude underlying. Clinical correlation recommended to exclude underlying neoplastic process including but not limited to lymphoma Evaluation for hilar lymphadenopathy slightly limited due to the lack of circulating intravenous contrast material.. Trachea is midline and patent with no large central endoluminal lesions. There is a small hiatal hernia.. PLEURA: No pleural fluid. No pneumothorax. BONES: Minor multilevel degenerative spondylosis of the thoracic spine. There are no acute compression fractures no retropulsed fragments. Vertebral bodies exhibit normal stature. Probable hemangioma within the right L1 segment. Vertebral bodies and facets normally aligned. UPPER ABDOMEN: Stomach is markedly distended with food debris liquid and air. Gallbladder appears incompletely distended presumably accounts for thick-walled appearance. No definitive intraluminal gallbladder calculi identified. OTHER FINDINGS: None. IMPRESSION: Markedly enlarged right axillary lymph node measuring nearly 3.4 cm. There are also mildly enlarged left axillary lymph nodes 1 measuring nearly 19 mm and the next measuring approximately 12 mm. Several small to medium-sized mediastinal lymph nodes, 2 of the largest located in the prevascular space abutting the lateral margin of the aortic arch 1st measuring approximately 16 mm and the 2nd measuring approximately 15.4 mm. Clinical correlation recommended to exclude underlying neoplastic process including but not limited to lymphoma. Mild passive atelectasis both posterior lower lung foster. Mild scarring changes left lingular region. No acute infiltrates.
[2018-07-28] MEDS: Acetylcysteine 20% Inhal Soln (4ml) INH SCH (19:13)
[2018-07-28] MEDS: Promethazine/Cod 6.25mg-10mg/5ml Syr UD PO PRN (19:57)
[2018-07-29 00:23] VITALS: O2SAT 97
[2018-07-29] MEDS: Albuterol-Ipratrop 3 mg / 0.5 (3 ml) UD INH SCH ×3 (01:00→13:06)
[2018-07-29] MEDS: Promethazine/Cod 6.25mg-10mg/5ml Syr UD PO PRN (04:54)
[2018-07-29] MEDS: Acetylcysteine 20% Inhal Soln (4ml) INH SCH (07:16)
[2018-07-29] MEDS: levoFLOXacin 500 mg in D5W 500 MG/100 ML BAG IVPB SCH (08:14)
[2018-07-29] MEDS: Insulin Regular 100 units/ml SC SCH ×3 (08:15→16:42)
[2018-07-29] MEDS: Pantoprazole 40 mg EC Tab PO SCH (08:17)
--- NOTE | 2018-07-29 10:50 | CP.PCM.PN ---
Subjective - Date & Time of Evaluation Date of Evaluation: 07/29/18 Time of Evaluation: 10:53 - Subjective Subjective: COUGH IMP[ROVING STILL DYSPNEIC ON MILD EXERTION Objective - Vital Signs/Intake and Output Vital Signs (last 24 hours): Temp Pulse Resp BP Pulse Ox 97.8 F 118 H 20 182/89 H 97 07/29/18 08:15 07/29/18 09:00 07/29/18 08:15 07/29/18 08:17 07/29/18 08:15 - Medications Medications: Current Medications Acetylcysteine (Acetylcysteine 20%) 2 ml INH RBID [facility] Last Admin: 07/29/18 07:16 Dose: 2 ml Albuterol/Ipratropium (Duoneb 3 Mg/0.5 Mg (3 Ml) Ud) 3 ml INH RQ6 BELINDA Last Admin: 07/29/18 07:17 Dose: 3 ml Aspirin (Ecotrin) 81 mg PO DAILY [facility] Last Admin: 07/29/18 08:19 Dose: 81 mg Hydromorphone HCl (Dilaudid) 2 mg IVP Q4 PRN PRN Reason: Pain, moderate (4-7) Levofloxacin/Dextrose (Levaquin 500mg) 500 mg in 100 mls @ 100 mls/hr IVPB DAILY [facility]; Protocol Last Admin: 07/29/18 08:14 Dose: 100 mls/hr Insulin Human Regular (Humulin R) 0 units SC ACHS [facility]; Protocol Last Admin: 07/29/18 08:15 Dose: 2 units Losartan Potassium (Cozaar) 50 mg PO DAILY [facility] Last Admin: 07/29/18 08:17 Dose: 50 mg Metformin HCl (Glucophage) 1,000 mg PO BIDWM [facility] Last Admin: 07/29/18 08:17 Dose: 1,000 mg Methylprednisolone (Solu-Medrol) 60 mg IV Q6 BELINDA Last Admin: 07/29/18 10:22 Dose: 60 mg Oxycodone/Acetaminophen (Percocet 5/325 Mg Tab) 1 tab PO Q6 PRN PRN Reason: Pain, Mild (1-3) Stop: 07/30/18 17:09 Pantoprazole Sodium (Protonix Ec Tab) 40 mg PO DAILY [facility] Last Admin: 07/29/18 08:17 Dose: 40 mg Promethazine HCl/Codeine (Phenergan/Codeine Oral Syrup) 10 ml PO Q6 PRN PRN Reason: Cough Last Admin: 07/29/18 04:54 Dose: 10 ml Sitagliptin Phosphate (Januvia) 50 mg PO BID [facility] Last Admin: 07/29/18 08:17 Dose: 50 mg Zolpidem Tartrate (Ambien) 5 mg PO HS [facility] Last Admin: 07/28/18 21:56 Dose: 5 mg - Labs Labs: 07/27/18 12:30 07/27/18 12:30 - Constitutional Appears: Chronically Ill - Head Exam Head Exam: ATRAUMATIC, NORMAL INSPECTION, NORMOCEPHALIC - Eye Exam Eye Exam: EOMI, Normal appearance, PERRL Pupil Exam: NORMAL ACCOMODATION, PERRL - ENT Exam ENT Exam: Mucous Membranes Moist, Normal Exam - Neck Exam Neck Exam: Full ROM, Normal Inspection. absent: Lymphadenopathy - Respiratory Exam Respiratory Exam: Decreased Breath Sounds, Prolonged Expiratory Phase, Rales, Wheezes, NORMAL BREATHING PATTERN - Cardiovascular Exam Cardiovascular Exam: Tachycardia, +S1, +S2. absent: Murmur - GI/Abdominal Exam GI & Abdominal Exam: Soft, Normal Bowel Sounds. absent: Tenderness - Rectal Exam Rectal Exam: NORMAL INSPECTION - Extremities Exam Extremities Exam: Full ROM, Normal Capillary Refill, Normal Inspection. absent: Joint Swelling, Pedal Edema - Back Exam Back Exam: NORMAL INSPECTION - Neurological Exam Neurological Exam: Alert, Awake, CN II-XII Intact, Normal Gait, Oriented x3 - Psychiatric Exam Psychiatric exam: Normal Affect, Normal Mood - Skin Skin Exam: Dry, Intact, Normal Color, Warm Assessment and Plan - Assessment and Plan (Free Text) Assessment: ACUTE EXAC OF COPD AXILLARY,HILAR AND MEDIATINAL ADENOPATHY HTN DM Plan: CASE DISCUSSED WITH PT LYMPHADENOPATHY ADDRESSED--PT TO FOLLOW UP WITH HIS SURGEON IN [facility] FOR POSSIBLE BIOPSY CONTINUE CURRENT RX
[2018-07-29 15:56] VITALS: BP 173/88; PULSE 126; RESP 18; TEMP 98.4
--- NOTE | 2018-07-29 18:18 | CP.PCM.PCO ---
Against Medical Advice - AMA Patient Left Against Medical Advice: -The medical writer was called on this 53 y/o male who desired to leave hospital against medical advice. Pt was extensively counseled, educated and made aware on the possible risk and complications from not completing treatment in the hospital. Pt was told that hospitalization was necessary since outpatient treament of likely COPD exacerbation was unsucessful, leaving the hospital could increase his risk to develop complications including but not limited to worsening symptoms, pneumonia, not oxygenating well and maybe . -Pt is alert, orientedx3, hast the capacity to make this informed decision and understand my explanation. Pt accepted these risk and signed AMA form. Nurse, Ms. Emanuel, as witness. --Pt instructed to f/u with PCP patti 1 week and general surgery for further management of lymphadenopathy.
--- NOTE | 2018-07-30 10:51 | CP.PCM.DIS ---
Provider - Provider Date of Admission: 07/27/18 12:15 Attending physician: Chava Bosch MD Time Spent in preparation of Discharge (in minutes): 30 Diagnosis - Discharge Diagnosis (1) Lymphadenopathy, axillary Status: Acute (2) Lymphadenopathy Status: Acute (3) Acute bronchitis with chronic obstructive pulmonary disease (COPD) Status: Acute (4) Anxiety Status: Acute (5) Diabetes mellitus Status: Acute (6) Failure of outpatient treatment Status: Acute (7) Hypertension Status: Acute Hospital Course - Lab Results Lab Results: Micro Results 07/27/18 12:45 Blood-Venous Blood Culture - Preliminary NO GROWTH AFTER 48 HOURS 07/27/18 12:30 Blood Blood Culture - Preliminary NO GROWTH AFTER 48 HOURS 07/28/18 17:26 Sputum Gram Stain - Final Most Recent Lab Values WBC 7.9 K/uL (4.8-10.8) 07/27/18 12:30 RBC 4.19 Mil/uL (4.40-5.90) L 07/27/18 12:30 Hgb 13.6 g/dL (12.0-18.0) 07/27/18 12:30 Hct 40.7 % (35.0-51.0) 07/27/18 12:30 MCV 97.1 fl (80.0-94.0) H D 07/27/18 12:30 MCH 32.5 pg (27.0-31.0) H 07/27/18 12:30 MCHC 33.5 g/dL (33.0-37.0) 07/27/18 12:30 RDW 13.7 % (11.5-14.5) 07/27/18 12:30 Plt Count 141 K/uL (130-400) 07/27/18 12:30 MPV 9.4 fl (7.2-11.7) 07/27/18 12:30 Neut % (Auto) 39.3 % (50.0-75.0) L 07/27/18 12:30 Lymph % (Auto) 25.2 % (20.0-40.0) 07/27/18 12:30 Carroll % (Auto) 34.2 % (0.0-10.0) H 07/27/18 12:30 Eos % (Auto) 0.3 % (0.0-4.0) 07/27/18 12:30 Baso % (Auto) 1.0 % (0.0-2.0) 07/27/18 12:30 Neut # (Auto) 3.1 K/uL (1.8-7.0) 07/27/18 12:30 Lymph # (Auto) 2.0 K/uL (1.0-4.3) 07/27/18 12:30 Carroll # (Auto) 2.7 K/uL (0.0-0.8) H 07/27/18 12:30 Eos # (Auto) 0.0 K/uL (0.0-0.7) 07/27/18 12:30 Baso # (Auto) 0.1 K/uL (0.0-0.2) 07/27/18 12:30 Neutrophils % (Manual) 39 % (42-75) L 07/27/18 12:30 Band Neutrophils % 2 % (0-2) 07/27/18 12:30 Lymphocytes % (Manual) 28 % (20-50) 07/27/18 12:30 Reactive Lymphs % 1 % (0-0) H 07/27/18 12:30 Monocytes % (Manual) 28 % (0-10) H 07/27/18 12:30 Eosinophils % (Manual) 2 % (0-7) 07/27/18 12:30 Platelet Estimate Normal (NORMAL) 07/27/18 12:30 Large Platelets Present 07/27/18 12:30 Giant Platelets Present 07/27/18 12:30 Anisocytosis (manual) Slight 07/27/18 12:30 pCO2 28 mm/Hg (35-45) L 07/28/18 13:29 pO2 56 mm/Hg (80-100) L 07/28/18 13:29 HCO3 20.4 mmol/L (21-28) L 07/28/18 13:29 ABG pH 7.41 (7.35-7.45) 07/28/18 13:29 ABG Total CO2 18.6 mmol/L (22-28) L 07/28/18 13:29 ABG O2 Saturation 89.7 % (95-98) L 07/28/18 13:29 ABG O2 Content 17.8 ML/dL (15-23) 07/28/18 13:29 ABG Base Excess -5.4 mmol/L (-2.0-3.0) L 07/28/18 13:29 ABG Hemoglobin 14.6 g/dL (11.7-17.4) 07/28/18 13:29 ABG Carboxyhemoglobin 2.1 % (0.5-1.5) H 07/28/18 13:29 POC ABG HHb (Measured) 10.0 % (0.0-5.0) H 07/28/18 13:29 ABG Methemoglobin 1.1 % (0.0-3.0) 07/28/18 13:29 ABG O2 Capacity 19.8 mL/dL (16-24) 07/28/18 13:29 Louis Test Yes 07/28/18 13:29 A-a O2 Difference 109.0 mm/Hg 07/28/18 13:29 Hgb O2 Saturation 86.9 % (95.0-98.0) L 07/28/18 13:29 Vent Mode N/c 07/28/18 13:29 FiO2 28.0 % 07/28/18 13:29 Sodium 142 mmol/l (132-148) 07/27/18 12:30 Potassium 3.9 MMOL/L (3.6-5.0) 07/27/18 12:30 Chloride 106 mmol/L (98-107) 07/27/18 12:30 Carbon Dioxide 24 mmol/L (22-30) 07/27/18 12:30 Anion Gap 16 (10-20) 07/27/18 12:30 BUN 12 mg/dl (9-20) 07/27/18 12:30 Creatinine 0.6 mg/dl (0.8-1.5) L 07/27/18 12:30 Est GFR ( Amer) > 60 07/27/18 12:30 Est GFR (Non-Af Amer) > 60 07/27/18 12:30 POC Glucose (mg/dL) 356 mg/dL (65-110) H 07/29/18 16:07 Random Glucose 130 mg/dL (75-110) H 07/27/18 12:30 Calcium 8.9 mg/dL (8.4-10.2) 07/27/18 12:30 Total Bilirubin 0.1 mg/dl (0.2-1.3) L 07/27/18 12:30 AST 35 U/L (17-59) 07/27/18 12:30 ALT 40 U/L (21-72) 07/27/18 12:30 Alkaline Phosphatase 78 U/L (38-126) 07/27/18 12:30 Total Protein 8.0 G/DL (6.3-8.2) 07/27/18 12:30 Albumin 4.5 g/dL (3.5-5.0) 07/27/18 12:30 Globulin 3.5 gm/dL (2.2-3.9) 07/27/18 12:30 Albumin/Globulin Ratio 1.3 (1.0-2.1) 07/27/18 12:30 Discharge Exam - Head Exam Head Exam: ATRAUMATIC, NORMAL INSPECTION, NORMOCEPHALIC - Eye Exam Eye Exam: EOMI, Normal appearance, PERRL Pupil Exam: NORMAL ACCOMODATION, PERRL - Respiratory Exam Respiratory Exam: Decreased Breath Sounds, Rales, Wheezes - GI/Abdominal Exam GI & Abdominal Exam: Normal Bowel Sounds - Rectal Exam Rectal Exam: NORMAL INSPECTION - Neurological Exam Neurological exam: Alert, CN II-XII Intact, Normal Gait, Oriented x3, Reflexes Normal - Psychiatric Exam Psychiatric exam: Anxious, Normal Affect, Normal Mood - Skin Skin Exam: Dry, Intact, Normal Color, Warm Discharge Plan - Follow Up Plan Condition: FAIR Disposition: AGAINST MEDICAL ADVICE Additional Instructions: PT SIGNED OUT AMA HE WILL FOLLOW UP WITH HIS DRS AT [facility] FOR BIOPSY AND THERAPY OF ADENOPATHY
== END 2018-07-29 19:15 | disposition left against medical advice (07) | DRG 191 ==
LOC: H.ER 11:35 → H.ERHOLD 12:15 → H.TEL 16:09
PROVIDERS: ADMIT Internal Medicine Pulmonary Disease; ATTEND Internal Medicine Pulmonary Disease
PROC: 3E0F7GC Introduction of Other Therapeutic Substance into Respiratory Tract, Via Natural or Artificial Opening (ICD-10-PCS; principal; 2018-07-27)
PROC: 3E02340 Introduction of Influenza Vaccine into Muscle, Percutaneous Approach (ICD-10-PCS; 2018-07-27)
DX: J44.1 Chronic obstructive pulmonary disease with (acute) exacerbation (principal); D47.9 Neoplasm of uncertain behavior of lymphoid, hematopoietic and related tissue, unspecified; E11.65 Type 2 diabetes mellitus with hyperglycemia; J06.9 Acute upper respiratory infection, unspecified; F41.9 Anxiety disorder, unspecified; I10 Essential (primary) hypertension; J20.9 Acute bronchitis, unspecified; Z82.49 Family history of ischemic heart disease and other diseases of the circulatory system; Z83.3 Family history of diabetes mellitus; Z87.891 Personal history of nicotine dependence; Z90.49 Acquired absence of other specified parts of digestive tract; K29.70 Gastritis, unspecified, without bleeding; Z79.84 Long term (current) use of oral hypoglycemic drugs; Z79.899 Other long term (current) drug therapy; R06.03 Acute respiratory distress; R59.0 Localized enlarged lymph nodes; Z23 Encounter for immunization